=== PATIENT | female | born 1950 | race Caucasian/White ===

== ENCOUNTER → 2016-10-07 | Outpatient (CLI) | payer MEDICARE ==
[~2016-10-07] MED LIST: ACET-1138 PO; ASCO500T16 PO; ASPI81TA28 PO; CARB25TA12 PO; CARB25TA16 PO; CARB50TA3 PO; CEPH500C PO; CHOL1000 PO; CLON1TAB3 PO; CLTP PO; GARL400T4 PO; MELO15TA10 PO; OMEG10007 PO; OXYSR10 PO; RXC5 PO; SERT-234 PO; SUMA100T16 PO; TURM1CAP2 PO
--- NOTE | 2016-10-07 14:06 | DIAGNOSTIC IMAGING REPORT ---
LOWER EXTREMITY WITHOUT HISTORY: 66 years-old Female presents with chronic right foot pain. Degenerative changes are noted within the second through fourth tarsometatarsal joints. COMPARISON: None available TECHNIQUE: Multiple axial CT images of the right foot were obtained without IV contrast. Coronal and sagittal reformatted images were obtained from the axial data set and were submitted for review. A dose lowering technique was used consistent with the principals of GRACIELA. FINDINGS: Talar dome is smooth without osteochondral defect. No acute fracture or dislocation is identified. The bones are mildly demineralized. Os trigonum is noted. Multifocal central, marginal and periarticular erosions are noted throughout the mid foot involving the second, third, fourth and fifth tarsal metatarsal joints with associated bony destruction and articular collapse with associated fragmentation. Subtle changes are seen within the first tarsometatarsal joint. Mild degree of marginal and periarticular erosions are present within the first tarsal metatarsal joint and navicular cuneiform articulation. There are a few central erosions and subcortical cystic changes present within the distal cuboid. The talus and calcaneus demonstrate no focal erosive changes. There is prominent spurring of the plantar and Achilles insertion sites about the calcaneus. There is mild thickening of the distal Achilles tendon suggesting tendinosis. There is moderate soft tissue swelling about the dorsal midfoot with large talonavicular joint effusion, greatest seen laterally. Edema and fluid is also noted about the midfoot and area of previously described erosions. There is thickening of the tibialis anterior tendon suggesting tendinosis. IMPRESSION: 1. No acute fracture identified. 2. Multifocal severe central, marginal and periarticular erosions with articular destruction and fragmentation with surrounding soft tissue swelling involves the midfoot, notably within the second through fifth tarsal metatarsal joints and navicular cuneiform articulations. Less extensive changes are seen within the cuboid, first tarsometatarsal and metatarsophalangeal joints. Differential considerations would include erosive or infectious arthropathy. 2. Large talonavicular joint effusion with moderate soft tissue swelling about the dorsal midfoot. 3. Suspected tibialis anterior tendinosis. The above report was generated using voice recognition software. It may contain grammatical, syntax or spelling errors. Electronically signed by: Marcelo Crooks M.D. 10/07/2016 2:05 PM Dictated Date/Time: 10/07/2016 1:46 PM
== END | disposition home or self-care (01) ==
LOC: C.CTS 13:24
PROVIDERS: ATTEND Orthopaedic Surgery Sports Medicine
DX: M79.671 Pain in right foot (principal); M25.474 Effusion, right foot

== ENCOUNTER → 2016-10-14 | Outpatient (CLI) | payer MEDICARE | END | disposition home or self-care (01) | LOC: C.CPL 17:07 | PROVIDERS: ATTEND Orthopaedic Surgery Sports Medicine | DX: Z01.810 Encounter for preprocedural cardiovascular examination (principal) ==

== ENCOUNTER 2016-11-18 20:03 | Emergency (ER) | payer MEDICARE ==
[~2016-11-18] VITALS: Ht 144.8 cm; Wt 53.5 kg
[~2016-11-18 20:03] MED LIST changes: -ASPI81TA28 PO; -CEPH500C PO; -MELO15TA10 PO
[2016-11-18 20:09] VITALS: Ht 144.8 cm; Wt 53.5 kg
--- NOTE | 2016-11-18 21:15 | EMERGENCY ROOM VISIT NOTE ---
ED Visit Note First contact with patient: 20:35 HPI: Feverishness/chills in setting of recent bone graft for severe arthritis in right foot. PE: AFVSS, NAD NC/AT RRR, no murmurs CTAB Abd soft NT/ND Ext: Right foot with multiple sutured incision sites c/d/i. 2+ edema and localized jaundice in setting of resolving post-op hematoma. Neuro: grossly intact Plan: Infectious w/u. If reassuring can d/c with close f/u. Otherwise admit for IV ABX. I reviewed the patient's past medical history, medications, and visit nursing notes. I discussed the case with the physician behavioral assistant, examined the patient, and agree with the findings and plan as documented in the physician assistants note.
[2016-11-18] MEDS ORDERED: MELO15TA10 PO (21:53)
[2016-11-18] MEDS ORDERED: ASPI81TA28 PO (21:53)
[2016-11-18 21:59] LABS: BUN/CREATININE RATIO 23.7 (10-20); C-REACTIVE PROTEIN 0.98 mg/dl (0-0.29); CALCIUM 9.7 mg/dl (8.5-10.1); CREATININE 0.65 mg/dl (0.60-1.20); POTASSIUM 4.1 mmol/L (3.5-5.1)
--- NOTE | 2016-11-18 22:10 | DIAGNOSTIC IMAGING REPORT ---
R FOOT MIN 3 VIEWS ROUTINE CLINICAL HISTORY: Right foot pain. Postoperative fever. COMPARISON: CT scan dated 10/07/2016 DISCUSSION: There are extensive postsurgical changes present within the midfoot. Multiple metallic plates screws and giovanna are visualized. There are no acute fractures. There is overlying soft tissue edema. There is a nonspecific lucency adjacent to the tip of the second most distal screw at the level of the third metatarsal. IMPRESSION: 1. No acute fractures 2. Extensive postsurgical changes within the midfoot. 3. Soft tissue swelling Electronically signed by: Alejandro Montesinos M.D. 11/18/2016 10:09 PM Dictated Date/Time: 11/18/2016 10:07 PM
[2016-11-18 22:29] LABS: HEMATOCRIT 34.1 % (37-47); MEAN CELL VOLUME 96.6 fL (80-100); MEAN CORPUSCULAR HEMOGLOBIN 32.6 pg (25-34); MEAN CORPUSCULAR HGB CONC 33.7 g/dl (32-36); PLATELET COUNT 369 K/uL (130-400); RED BLOOD COUNT 3.53 M/uL (4.2-5.4); WHITE BLOOD COUNT 8.58 K/uL (4.8-10.8)
[2016-11-18 22:39] LABS: BASO % 0.3 %; BASO ABS # 0.03 K/uL (0-0.2); COMPLETE YES; EOS % 1.7 %; HYPERSEGMENTED POLYS 1+; IG% 0.3 %; LYMPH % 23.9 %; LYMPH ABS # 2.05 K/uL (1.2-3.4); MONO % 10.3 %; NEUT % 63.5 %
[2016-11-18] MEDS ORDERED: CEPHALEXIN 500MG HOME PACK 1 EA BTL PO ONE (22:45)
[2016-11-18] MEDS ORDERED: CEPH500C PO (22:47)
--- NOTE | 2016-11-18 22:52 | EMERGENCY ROOM VISIT NOTE ---
History First contact with patient: 20:35 Chief Complaint: INFECTION Stated Complaint: SURG ON THE 2ND PAIN FEVER Nursing Triage Summary: Patient presents to triage via wheelchair. Patient's present. Patient states "I had surgery on Thursday on my right foot. I developed a blood blister the next day, next to the surgical site. I bent over the following day and it broke open, draining pus and blood. I called Dr. Nunn's office and they told me to keep it covered so that it didn't get infected. I started getting really sharp pains in my right foot. I am really nauseated and I have more pain now than I had when I was discharged. When the pain gets really bad, I start feeling very hot." History of Present Illness The patient is a 66 year old female who presents to the Emergency Room with complaints of right foot pain and fever after undergoing surgery [address] Nunn. The patient reports that she has severe arthritis in the midfoot. The reports that she had a bone graft and other hardware placed. When the patient got home last evening, the reported that he noticed a blood blister under the edge of the dressing, on the top of the foot. The patient reports that it popped last night and looked yellow. The patient felt feverish today, but did not check her temperature. She denies any significant pain. She denies history of antibiotic resistant infections. She currently denies any pain extending into the right calf, knee, hip or back. She denies any chest pain or shortness of breath. She does complain of heel pain. She denies any significant discomfort on my exam. Review of Systems HEENT: Denies dizziness, visual problems, hearing loss, tinnitus. Denies difficulty swallowing or oral lesions. PULMONARY: Denies cough, shortness of breath, sputum production or hemoptysis. CARDIOVASCULAR: Denies chest pain, palpitations, dyspnea on exertion, orthopnea or peripheral edema. GASTROINTESTINAL: Denies diarrhea, constipation, nausea, vomiting, or abdominal pain. GENITOURINARY: Denies dysuria, frequency, urgency or nocturia. NEUROLOGIC: Denies history of epilepsy, CVA, TIA or chronic headaches. MUSCULOSKELETAL: Denies history of joint tenderness/swelling. SKIN: Denies rashes or lesions. PSYCHIATRIC: Denies history of depression or mental illness. ENDOCRINE: Denies history of diabetes or thyroid disorders. Past Medical/Surgical History Medical Problems: (1) Anxiety Disorder, Unspecified (2) DJD of right shoulder (3) Knee Joint Replacement Status (4) Major Depressive Disorder, Single Episode, Unspecified (5) Migraine Unspecified W/O Intractable Migraine (6) Osteoarthritis of foot, right (7) Parkinson's Disease (8) Rheumatoid Arthritis, Unspecified Surgical Problems: (1) Status post right foot surgery Family History Unremarkable Social History Smoking Status: Never Smoker Alcohol Use: none Marital Status: Occupation Status: retired Current/Historical Medications Scheduled Aspirin (Aspirin Ec), 81 MG PO DAILY Carbidopa/Levodopa (Sinemet Cr 50MG/200MG), 1 TAB PO HS Carbidopa/Levodopa (Sinemet 25MG/100MG), 2.5 TAB PO 5xday Carbidopa/Levodopa (Sinemet Cr 25MG/100MG), 1 TAB PO QAM Cephalexin Monohydrate (Keflex), 500 MG PO QID Clonazepam (Klonopin), 0.5 MG PO HS Meloxicam (Mobic), 15 MG PO DAILY Sertraline (Zoloft), 100 MG PO HS Sumatriptan Succinate (Imitrex), 100 MG PO PRN Physical Exam Vital Signs Date Time Temp Pulse Resp B/P (MAP) Pulse Ox O2 Delivery O2 Flow Rate FiO2 11/18/16 22:32 68 20 114/60 97 Room Air 11/18/16 20:09 36.7 82 20 125/79 98 Room Air Physical Exam CONSTITUTIONAL: Healthy and well nourished. Alert and oriented X 3 with positive affect. Patient does not appear acutely ill or toxic. HEENT: Normocephalic, atraumatic. Pupils equal, round and reactive. NECK: Full active range of motion without discomfort. RESPIRATORY: Clear to auscultation bilaterally with no wheezing, crackles, rhonchi or stridor. CARDIOVASCULAR: Regular rate and rhythm with no murmurs, rubs or gallops. GASTROINTESTINAL: Bowel sounds present in all quadrants. Soft and nontender to palpation. MUSCULOSKELETAL: The patient's plaster stirrup splint and soft dressings were removed. Examination shows for surgical incisions that are healing well without any peripheral erythema. There is no purulent or serosanguineous drainage from the wounds. Examination of the dorsal distal foot shows a 2.5 cm ruptured blister. Again she has no obvious peripheral erythema, induration or purulent drainage. She has no tenderness to palpation through the plantar aspect of the foot. Capillary refill is less than 2 seconds. INTEGUMENTARY: No rash or other significant dermatologic conditions noted. NEUROLOGIC: Right foot and toes are sensory intact. Medical Decision & Procedures ER Provider Diagnostic Interpretation: My interpretation of right foot x-rays as extensive surgical changes without any evidence for fracture or hardware displacement. Radiologist report is as follows: R FOOT MIN 3 VIEWS ROUTINE CLINICAL HISTORY: Right foot pain. Postoperative fever. COMPARISON: CT scan dated 10/07/2016 DISCUSSION: There are extensive postsurgical changes present within the midfoot. Multiple metallic plates screws and giovanna are visualized. There are no acute fractures. There is overlying soft tissue edema. There is a nonspecific lucency adjacent to the tip of the second most distal screw at the level of the third metatarsal. IMPRESSION: 1. No acute fractures 2. Extensive postsurgical changes within the midfoot. 3. Soft tissue swelling Laboratory Results 11/18/16 21:15 Red Blood Count 3.53, Mean Corpuscular Volume 96.6, Mean Corpuscular Hemoglobin 32.6, Mean Corpuscular Hemoglobin Concent 33.7, Mean Platelet Volume 9.0, Neutrophils (%) (Auto) 63.5, Lymphocytes (%) (Auto) 23.9, Monocytes (%) (Auto) 10.3, Eosinophils (%) (Auto) 1.7, Basophils (%) (Auto) 0.3, Neutrophils # (Auto ) 5.44, Lymphocytes # (Auto) 2.05, Monocytes # (Auto) 0.88, Eosinophils # (Auto ) 0.15, Basophils # (Auto) 0.03 11/18/16 21:15 Test 11/18/16 21:15 11/18/16 21:27 White Blood Count 8.58 K/uL (4.8-10.8) Red Blood Count 3.53 M/uL (4.2-5.4) Hemoglobin 11.5 g/dL (12.0-16.0) Hematocrit 34.1 % (37-47) Mean Corpuscular Volume 96.6 fL (80-100) Mean Corpuscular Hemoglobin 32.6 pg (25-34) Mean Corpuscular Hemoglobin Concent 33.7 g/dl (32-36) Platelet Count 369 K/uL (130-400) Mean Platelet Volume 9.0 fL (7.4-10.4) Neutrophils (%) (Auto) 63.5 % Lymphocytes (%) (Auto) 23.9 % Monocytes (%) (Auto) 10.3 % Eosinophils (%) (Auto) 1.7 % Basophils (%) (Auto) 0.3 % Neutrophils # (Auto) 5.44 K/uL (1.4-6.5) Lymphocytes # (Auto) 2.05 K/uL (1.2-3.4) Monocytes # (Auto) 0.88 K/uL (0.11-0.59) Eosinophils # (Auto) 0.15 K/uL (0-0.5) Basophils # (Auto) 0.03 K/uL (0-0.2) RDW Standard Deviation 46.1 fL (36.4-46.3) RDW Coefficient of Variation 13.3 % (11.5-14.5) Immature Granulocyte % (Auto) 0.3 % Immature Granulocyte # (Auto) 0.03 K/uL (0.00-0.02) Hypersegmented Polys 1+ Erythrocyte Sedimentation Rate 9 mm/hr (0-21) Anion Gap 6.0 mmol/L (3-11) Est Creatinine Clear Calc Drug Dose 59.9 ml/min Estimated GFR () 107.2 Estimated GFR (Non- 92.5 BUN/Creatinine Ratio 23.7 (10-20) Calcium Level 9.7 mg/dl (8.5-10.1) Total Creatine Kinase 53 U/L (26-192) C-Reactive Protein 0.98 mg/dl (0-0.29) Bedside Lactic Acid Venous 1.51 mmol/L (0.90-1.70) The above labs were reviewed. Blood cultures 2 were collected. The patient has no leukocytosis. Electrolytes and bedside lactate were normal. Sedimentation rate is normal with an elevated CRP. ED Course Patient history and physical exam were performed. Nurse's notes were reviewed. Vital signs were reviewed and were normal. The patient is afebrile and not tachycardic. She is also normotensive. She does not appear in any acute distress. The patient's splint and dressing were removed to show no obvious evidence for infection; however, because the patient has felt fevers, I felt that a septic workup was warranted. IV access was established, and labs were drawn, including blood cultures 2. [id number] lactate was normal. Remaining labs were reviewed, showing no leukocytosis. X-rays of the right foot showed extensive postsurgical changes without evidence for fracture or other hardware displacement. The patient was also seen and examined by Dr. Saab, ED attending physician, who agrees with workup and plan of care. The patient was provided a home pack and prescription for Keflex for prophylactic infection coverage. A well-padded posterior Ortho-Glass splint was applied, and the patient was instructed to call Dr. Nunn's office tomorrow morning for urgent follow-up appointment. She was encouraged to keep the foot elevated for swelling. Ibuprofen and Tylenol as needed for pain. The patient and were happy with plan of care, and the patient denied any significant pain at the conclusion of my exam. Medical Decision Although I do not suspect acute infection at this point, I am concerned that the patient did have a subjective fever at home. She is currently afebrile in the emergency department with no worrisome leukocytosis. X-ray studies were otherwise normal. At this point, I do not feel that an urgent orthopedic reconsultation is needed. Medication Reconcilliation Current Medication List: was personally reviewed by me Blood Pressure Screening Patient's blood pressure: Normal blood pressure Impression Primary Impression: Postoperative wound of right foot Additional Impression: Status post right foot surgery Departure Information Prescriptions Cephalexin Monohydrate (Keflex) 500 Mg Cap 500 MG PO QID for 7 Days, #28 CAP Prov: Av Cardenas PA 11/18/16 Referrals Mary Galindo M.D. (PCP) Patient Instructions [facility] Problem Qualifiers
[2016-11-18 22:54] VITALS: TEMP 37.2
[2016-11-19 00:13] VITALS: BP 122/76; PULSE 69; O2SAT 95
== END 2016-11-19 00:16 | disposition home or self-care (01) ==
LOC: C.EDB 20:05 → C.EDC 11-19 00:16
DX: T81.89XA Other complications of procedures, not elsewhere classified, initial encounter (principal); Y83.8 Other surgical procedures as the cause of abnormal reaction of the patient, or of later complication, without mention of misadventure at the time of the procedure; M19.011 Primary osteoarthritis, right shoulder; Z96.659 Presence of unspecified artificial knee joint; G20 Parkinson's disease; F32.9 Major depressive disorder, single episode, unspecified; F41.9 Anxiety disorder, unspecified; Z79.82 Long term (current) use of aspirin; Z79.899 Other long term (current) drug therapy

== ENCOUNTER 2018-05-19 17:59 | Inpatient (IN) ==
--- NOTE | 2018-05-19 18:57 | Emergency Department Note ---
Entered by Andrey Sofia acting as a scribe for History of Present Illness General Chief complaint: Knee Injury/Pain Stated complaint: REFERRED FOR L KNEE PAIN/SWELLING Time Seen by Provider: 05/19/18 18:18 Source: patient Limitations: no limitations History of Present Illness Onset (ago): day(s) 3 Location: left (leg) Pain Consistency: + constant Maximum Pain Intensity: 8 Quality: + constant Exacerbated By: + movement Associated symptoms: + denies other symptoms (abdominal pain, falls, bowel problems, urinary problems, ); no chest pain, no fever/chills and no shortness of breath The patient is a 67 year old female who presents to the Emergency Room with complaints of constant left knee pain starting 3 days ago. The patient states she had knee surgery in October, done by Dr. Knox. The patient states she got the surgery because she broke her femur from a fall. The patient states she went to rehab, and was not fully back to normal, as she is still using a walker. The patient states she cannot put weight on her leg and the pain is worse with movement. She notes she had two blood clots in her legs after the surgery. The patient states she had a follow-up appointment with her PCP, Dr. Mary Galindo, this morning and her PCP told her to come to the ED. The patient denies any falls, injuring her leg, chest pain, SOB, abdominal pain, back pain, fevers, bowel problems, and urinary problems. The patient notes she does not have any pain besides her leg. She notes she has Parkinsons. She states she had 4 back operations, shoulder replacement, and a foot replacement. The patient notes she takes Eliquis. Home Medications Home Medications Medication Instructions Recorded Confirmed Type cholecalciferol (vitamin D3) 2,000 unit PO QAM #60 tab 10/22/17 05/19/18 Rx [Vitamin D3] amantadine HCl 100 mg PO TID 05/19/18 05/19/18 History apixaban [Eliquis] 5 mg PO BID 05/19/18 05/19/18 History ascorbic acid (vitamin C) [Vitamin 500 mg PO DAILY 05/19/18 05/19/18 History C] aspirin [Aspir-81] 81 mg PO DAILY 05/19/18 05/19/18 History calcium carbonate [Calcium 600] 600 mg PO DAILY 05/19/18 05/19/18 History carbidopa-levodopa 1 tab PO DAILY 05/19/18 05/19/18 History carbidopa-levodopa 1 tab PO DAILY 05/19/18 05/19/18 History carbidopa-levodopa 2.5 tab PO DIRECTED 05/19/18 05/19/18 History clonazepam 0.25 mg PO TID 05/19/18 05/19/18 History doxepin 10 mg PO HS 05/19/18 05/19/18 History garlic 1,000 mg PO DAILY 05/19/18 05/19/18 History multivitamin 1 tab PO DAILY 05/19/18 05/19/18 History wuvow-0t-grz-epa-fish oil [Chandler-3 1 cap PO DAILY 05/19/18 05/19/18 History Fish Oil] oxycodone-acetaminophen [Percocet] 1 tab PO Q6H PRN 05/19/18 05/19/18 History sertraline 50 mg PO BID 05/19/18 05/19/18 History sertraline 100 mg PO DAILY 05/19/18 05/19/18 History sumatriptan succinate 100 mg PO DIRECTED PRN 05/19/18 05/19/18 History Allergies Allergy/AdvReac Type Severity Reaction Status Date / Time No Known Allergies Allergy Unknown Verified 05/19/18 23:00 Past Med/Surg History Medical History Femur fracture, left (Acute) Ankle fracture, left Anxiety Femur fracture, left Migraine Parkinson's disease (tremor, stiffness, slow motion, unstable posture) Surgical History H/O shoulder surgery Right Knee joint replacement status Bilateral Previous back surgery S/P hysterectomy Social History Preferred Language: Japanese Communication Ability: Effective 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 and A total of 10 systems reviewed and were otherwise negative Physical Exam Vital Signs Vital Signs - 24 hr 05/19/18 18:13 05/19/18 20:46 05/19/18 22:30 Temperature 36.6 C Temperature Source Oral Sepsis Recent Fever Within 48 Hours No Sepsis New/Unexplained Change in Mental Status No Sepsis Action Taken by Nursing No Action Required Pulse Rate 78 Pulse Rate [Right Finger] 72 73 Respiratory Rate 18 17 16 Blood Pressure 119/74 Blood Pressure [Left Arm] Blood Pressure [Right Arm] 124/82 124/77 Blood Pressure Mean 89 Blood Pressure Mean [Left Arm] Blood Pressure Mean [Right Arm] 96 92 Blood Pressure Position Sitting Blood Pressure Position [Left Arm] Blood Pressure Position [Right Arm] Pulse Oximetry 100 96 96 Oxygen Delivery Method Room Air Room Air Room Air 05/20/18 00:21 05/20/18 00:48 05/20/18 00:50 Temperature 36.7 C 36.7 C Temperature Source Oral Oral Sepsis Recent Fever Within 48 Hours Sepsis New/Unexplained Change in Mental Status Sepsis Action Taken by Nursing Pulse Rate 68 Pulse Rate [Right Finger] 74 74 Respiratory Rate 18 15 15 Blood Pressure 127/78 Blood Pressure [Left Arm] 127/75 Blood Pressure [Right Arm] 127/75 Blood Pressure Mean Blood Pressure Mean [Left Arm] 92 Blood Pressure Mean [Right Arm] 92 Blood Pressure Position Blood Pressure Position [Left Arm] Lying Blood Pressure Position [Right Arm] Lying Pulse Oximetry 97 96 96 Oxygen Delivery Method Room Air Room Air Room Air General: Non-ill appearing older female in no acute distress. HEENT: Normal cephalic atraumatic. Pupils are equal round and reactive to li ght. Extraocular movements are intact. Oropharynx is pink with moist mucous membranes. No swelling of the mouth lips or tongue. Neck: Supple with a midline trachea. No meningeal signs or stiffness, no JVD or bruits. No Stridor. Chest: Clear to auscultation bilaterally. No wheezes or rhonchi. No increased work of breathing. Heart: regular rate and rhythm. Abdomen: Soft nontender, nondistended without rebound guarding or rigidity. Extremities: No cyanosis clubbing or edema. Moderate swelling in distal femur anteriorly and laterally. No redness or warmth. Full ROM without warmth or redness. Normal sensation in left lower extremity. Spine/Back. Non tender to palpation. No CVA tenderness Skin: Good turgor without rashes. Neurologic exam: Cranial nerves two through 12 are intact. Motor and sensation are intact and symmetrical throughout. Course 1819: The patient was evaluated in room A11B, and a complete history and physical examination were performed. 1920: The patient is currently getting an ultrasound. 1922: I spoke with Dr. Donnelly regarding the patient. He wants to get a CT scan of the femur. 1929: I reevaluated the patient. I talked to the about getting a CT scan. 2048: I reevaluated the patient. She is feeling much better. 2129: I spoke with Dr. Donnelly regarding the patient. He will evaluate the patient for further management. Administered Medications Carbidopa/Levodopa (Sinemet Cr 50/200mg) 1 tab PO [facility] Stop: 06/19/18 01:29 Last Admin: 05/20/18 01:59 Dose: 1 tab Documented by: [id number] Clonazepam (Klonopin) 0.5 mg PO [facility] Stop: 06/19/18 01:29 Last Admin: 05/20/18 01:59 Dose: 0.5 mg Documented by: [id number] Dextrose/Sodium Chloride (D5w And 1/2nss) 1,000 mls @ 80 mls/hr IV .[id number] Stop: 06/19/18 01:29 Last Admin: 05/20/18 01:57 Dose: 80 mls/hr Documented by: [id number] Senna/Docusate Sodium (Senokot S) 2 tab PO [facility] Stop: 06/19/18 01:29 Last Admin: 05/20/18 02:01 Dose: 2 tab Documented by: [id number] Sertraline HCl (Zoloft) 100 mg PO [facility] Stop: 06/19/18 01:29 Last Admin: 05/20/18 01:59 Dose: 100 mg Documented by: [id number] Medical Decision Making Differential Diagnosis Differential Diagnosis: DVT, hematoma, infection, post-operation complication, fracture, and electrolyte or metabolic abnormality. Medical Records Attestation: I reviewed the patient's medical records. Home Medications Current Medication List: was personally reviewed by me Laboratory Data Attestation: I reviewed the patient's lab results. Result diagrams: 05/19/18 18:37 05/19/18 18:37 Lab Results 05/19/18 05/19/18 05/19/18 Range/Units 18:37 18:37 18:37 WBC 10.33 (4.8-10.8) K/uL RBC 3.67 L (4.2-5.4) M/uL Hgb 12.0 (12.0-16.0) g/dL Hct 35.8 L (37-47) % MCV 97.5 (80-100) fL MCH 32.7 (25-34) pg MCHC 33.5 (32-36) g/dL RDW Std Deviation 48.1 H (36.4-46.3) fL RDW Coeff of Valeria 13.9 (11.5-14.5) % Plt Count 307 (130-400) K/uL MPV 9.3 (7.4-10.4) fL Immature Gran % (Auto) 0.3 % Neut % (Auto) 66.9 % Lymph % (Auto) 19.5 % Claiborne % (Auto) 12.4 % Eos % (Auto) 0.8 % Baso % (Auto) 0.1 % Immature Gran # (Auto) 0.03 H (0.00-0.02) K/uL Neut # (Auto) 6.92 H (1.4-6.5) K/uL Lymph # (Auto) 2.01 (1.2-3.4) K/uL Cla[place]orne # (Auto) 1.28 H (0.11-0.59) K/uL Eos # (Auto) 0.08 (0-0.5) K/uL Baso # (Auto) 0.01 (0-0.2) K/uL ESR (0-21) mm/hr PT 10.8 (9.0-12.0) Seconds INR 1.1 (0.9-1.1) APTT 25.9 (21.0-31.0) Seconds PTT Ratio 1.0 Sodium 140 (136-145) mmol/L Potassium 3.6 (3.5-5.1) mmol/L Chloride 107 (98-107) mmol/L Carbon Dioxide 25 (21-32) mmol/L Anion Gap 8.0 (3-11) BUN 16 (7-18) mg/dl Creatinine 0.61 (0.6-1.2) mg/dl Est Cr Clr Drug Dosing Not Reportable Est GFR ( Amer) 108.7 Est GFR (Non-Af Amer) 93.8 BUN/Creatinine Ratio 26.6 H (10-20) Glucose 124 H (70-99) mg/dl Calcium 9.4 (8.5-10.1) mg/dl Total Bilirubin 0.4 (0.2-1) mg/dl AST 8 L (15-37) U/L ALT 8 L (12-78) U/L Alkaline Phosphatase 223 H (45-117) U/L C-Reactive Protein 2.70 H (0-0.29) mg/dl Total Protein 7.5 (6.4-8.2) gm/dl Albumin 3.7 (3.4-5.0) gm/dl Globulin 3.8 (2.5-4.0) gm/dl Albumin/Globulin Ratio 1.0 (0.9-2) 05/19/18 Range/Units 18:50 WBC (4.8-10.8) K/uL RBC (4.2-5.4) M/uL Hgb (12.0-16.0) g/dL Hct (37-47) % MCV (80-100) fL MCH (25-34) pg MCHC (32-36) g/dL RDW Std Deviation (36.4-46.3) fL RDW Coeff of Valeria (11.5-14.5) % Plt Count (130-400) K/uL MPV (7.4-10.4) fL Immature Gran % (Auto) % Neut % (Auto) % Lymph % (Auto) % Claiborne % (Auto) % Eos % (Auto) % Baso % (Auto) % Immature Gran # (Auto) (0.00-0.02) K/uL Neut # (Auto) (1.4-6.5) K/uL Lymph # (Auto) (1.2-3.4) K/uL Claiborne # (Auto) (0.11-0.59) K/uL Eos # (Auto) (0-0.5) K/uL Baso # (Auto) (0-0.2) K/uL ESR 8 (0-21) mm/hr PT (9.0-12.0) Seconds INR (0.9-1.1) APTT (21.0-31.0) Seconds PTT Ratio Sodium (136-145) mmol/L Potassium (3.5-5.1) mmol/L Chloride (98-107) mmol/L Carbon Dioxide (21-32) mmol/L Anion Gap (3-11) BUN (7-18) mg/dl Creatinine (0.6-1.2) mg/dl Est Cr Clr Drug Dosing Est GFR ( Amer) Est GFR (Non-Af Amer) BUN/Creatinine Ratio (10-20) Glucose (70-99) mg/dl Calcium (8.5-10.1) mg/dl Total Bilirubin (0.2-1) mg/dl AST (15-37) U/L ALT (12-78) U/L Alkaline Phosphatase (45-117) U/L C-Reactive Protein (0-0.29) mg/dl Total Protein (6.4-8.2) gm/dl Albumin (3.4-5.0) gm/dl Globulin (2.5-4.0) gm/dl Albumin/Globulin Ratio (0.9-2) Imaging Data Radiologist's Impression: Radiology results as stated below per my review and the radiologist's interpretation: US venous doppler LE LT CLINICAL HISTORY: Left lower extremity pain and swelling HISTORY OF PRIOR DVT COMPARISON STUDY: October 2017 FINDINGS: Real-time and color flow Doppler imaging were performed. Flow was seen within the femoral, popliteal and calf veins with no intraluminal thrombus demonstrated. The saphenous vein is patent. There is a small popliteal cyst. IMPRESSION: No evidence of left lower extremity DVT. Electronically signed by: Alejandro Montesinos M.D. 05/19/2018 7:43 PM XR femur LT 2V routine (5 views) CLINICAL HISTORY: Lower leg swelling COMPARISON: October 2017 DISCUSSION: There are postsurgical changes of a total left knee arthroplasty. There is a lateral mid to distal femoral metallic plate with multiple screws. The plate is fractured. There is nonaggressive periosteal/cortical thickening involving the medial aspect of the mid to distal femur. IMPRESSION: 1. Internally fixated distal femoral fracture. 2. Hardware failure with fracture of the cortical plate. 3. Prominent cortical thickening/periostitis at the prior fracture site, consistent with fracture healing, and possibly accentuated due to hardware failure and abnormal motion Electronically signed by: Alejandro Monteisnos M.D. 05/19/2018 7:[address] femur LT wo con CT DOSE: 1018.70 mGy.cm CLINICAL HISTORY: Left femur pain. Left lower extremity swelling. TECHNIQUE: Helical images were acquired in the transverse plane. Sagittal and coronal reformatted images were acquired. A dose lowering technique was utilized adhering to the principles of ALARA. COMPARISON STUDY: Conventional x-ray dated 05/19/2018 FINDINGS: There is moderate artifact secondary to a total knee arthroplasty and distal femoral cortical plate. There is an internally fixated fracture of the distal femur. There is abundant periostitis and cortical thickening. There is evidence for fracture nonunion. There is a fracture of the cortical plate. IMPRESSION: 1. Total knee arthroplasty 2. Internally fixated fracture of the mid to distal femur with a lateral cortical plate and multiple screws. 3. There is evidence for hardware failure with fracture of the plate. 4. 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 Electronically signed by: Alejandro Montesinos M.D. 05/19/2018 8:45 PM Blood Pressure Blood Pressure Findings: Normal blood pressure Blood Pressure Disposition: further management by hospitalist PATRICIA Abdul This patient comes in as described above. She was placed in room A11. She has a history of left femur surgery in this previous November. She is almost fully recovered from that but she does walk with a walker but also has Parkinson's. O tatiana the last several days, she has had swelling in the distal femur and laterally. There is no redness or warmth it is seems above the knee joint as well. She has no neurologic or neurovascular deficit, she is on a blood thinner also has a history of blood clots. In light of this, I did order an ultrasound x-ray and multiple blood tests including inflammatory markers. She has no evidence of DVT on her ultrasound. Her x-ray does show a fracture of the hardware distally. I did discuss this with Dr. Donnelly recommends a CT. I got the CT and this confirms that there is also some nonunion of the fracture. The patient does not feel she can go home she cannot walk she has swelling and has P arkinson's so she has a fall risk to begin with I do think she needs to be admitted/observed for further treatment and evaluation. Dr. Vincent will be admitting her. Impression & Plan Fracture of femoral component of total hip prosthesis Discharge Plan Visit Data *Final* Discharge Date/Time: 05/20/18 00:21 Chief Complaint: Knee Injury/Pain Stated Complaint: REFERRED FOR L KNEE PAIN/SWELLING ED Provider: Alfredo Yeager Discharge Problem: Fracture of femoral component of total hip prosthesis Patient Disposition: Admitted As Inpatient Discharge Instructions Interventions: ED Discharge Assessment Last Done: 05/20/18 00:21 Discharge Problem: Fracture of femoral component of total hip prosthesis Qualifiers: Encounter type: initial encounter Qualified Code(s): T84.018A - Broken internal joint prosthesis, other site, initial encounter The scribe's documentation has been prepared under my direction and personally reviewed by me in its entirety. I confirm that the note above accurately reflects all work, treatment, procedures, and medical decision making performed by me.
[2018-05-19 19:10] LABS: INR 1.1 (0.9-1.1); Partial Thromboplastin Time 25.9 Seconds (21.0-31.0); Prothrombin Time 10.8 Seconds (9.0-12.0)
--- NOTE | 2018-05-19 19:10 | XRay Report ---
XR femur LT 2V routine (5 views) CLINICAL HISTORY: Lower leg swelling COMPARISON: October 2017 DISCUSSION: There are postsurgical changes of a total left knee arthroplasty. There is a lateral mid to distal femoral metallic plate with multiple screws. The plate is fractured. There is nonaggressive periosteal/cortical thickening involving the medial aspect of the mid to distal femur. IMPRESSION: 1. Internally fixated distal femoral fracture. 2. Hardware failure with fracture of the cortical plate. 3. Prominent cortical thickening/periostitis at the prior fracture site, consistent with fracture hea ling, and possibly accentuated due to hardware failure and abnormal motion Electronically signed by: Alejandro Montesinos M.D. 05/19/2018 7:08 PM
[2018-05-19 19:14] LABS: Albumin Level 3.7 gm/dl (3.4-5.0); Aspartate Aminotransferase 8 U/L (15-37); BUN Creatinine Ratio 26.6 (10-20); Blood Urea Nitrogen 16 mg/dl (7-18); Calcium 9.4 mg/dl (8.5-10.1); Carbon Dioxide 25 mmol/L (21-32); Chloride 107 mmol/L (98-107); Est GFR (African American) 108.7; Est GFR (Non-African American) 93.8; Glucose 124 mg/dl (70-99); Potassium 3.6 mmol/L (3.5-5.1); Sodium 140 mmol/L (136-145)
[2018-05-19 19:20] LABS: Alanine Aminotransferase 8 U/L (12-78); Alkaline Phosphatase 223 U/L (45-117); Bilirubin,Total 0.4 mg/dl (0.2-1); Globulin 3.8 gm/dl (2.5-4.0); Total Protein 7.5 gm/dl (6.4-8.2)
--- NOTE | 2018-05-19 19:44 | Ultrasound Report ---
US venous doppler LE LT CLINICAL HISTORY: Left lower extremity pain and swelling HISTORY OF PRIOR DVT COMPARISON STUDY: October 2017 FINDINGS: Real-time and color flow Doppler imaging were performed. Flow was seen within the femoral, popliteal and calf veins with no intraluminal thrombus demonstrated. The saphenous vein is patent. Th ere is a small popliteal cyst. IMPRESSION: No evidence of left lower extremity DVT. Electronically signed by: Alejandro Montesinos M.D. 05/19/2018 7:43 PM
--- NOTE | 2018-05-19 20:46 | CT Scan Report ---
CT femur LT wo con CT DOSE: 1018.70 mGy.cm CLINICAL HISTORY: Left femur pain. Left lower extremity swelling. TECHNIQUE: Helical images were acquired in the transverse plane. Sagittal and coronal reformatted adalberto ges were acquired. A dose lowering technique was utilized adhering to the principles of ALARA. COMPARISON STUDY: Conventional x-ray dated 05/19/2018 FINDINGS: There is moderate artifact secondary to a total knee arthroplasty and distal femoral cortical plate. There is an internally fixated fracture of the distal femur. There is abundant periostitis and cortic al thickening. There is evidence for fracture nonunion. There is a fracture of the cortical plate. IMPRESSION: 1. Total knee arthroplasty 2. Internally fixated fracture of the mid to distal femur with a lateral cortical plate and multiple screws. 3. There is evidence for hardware failure with fracture of the plate. 4. 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 Electronically signed by: Alejandro Montesinos M.D. 05/19/2018 8:45 PM
[2018-05-19 21:02] LABS: Hematocrit (blood only) 35.8 % (37-47); Mean Corpuscular Hgb Conc 33.5 g/dL (32-36); Mean Corpuscular Volume 97.5 fL (80-100); Mean Platelet Volume 9.3 fL (7.4-10.4); Platelet Count 307 K/uL (130-400); RDW Coefficient of Variation 13.9 % (11.5-14.5); RDW Standard Deviation 48.1 fL (36.4-46.3); Red Blood Count 3.67 M/uL (4.2-5.4); White Blood Count 10.33 K/uL (4.8-10.8)
[2018-05-19 22:00] LABS: Basophils # (auto) 0.01 K/uL (0-0.2); Basophils % (auto) 0.1 %; Eosinophils # (auto) 0.08 K/uL (0-0.5); Eosinophils % (auto) 0.8 %; Immature Granulocytes # (auto) 0.03 K/uL (0.00-0.02); Immature Granulocytes % (auto) 0.3 %; Lymphocytes # (auto) 2.01 K/uL (1.2-3.4); Lymphocytes % (auto) 19.5 %; Monocytes # (auto) 1.28 K/uL (0.11-0.59); Monocytes % (auto) 12.4 %; Neutrophils # (auto) 6.92 K/uL (1.4-6.5); Neutrophils % (auto) 66.9 %
[2018-05-20] MEDS ORDERED: DiphenhydrAMINE HCL 50 MG/ML VIAL IV PRN (00:42)
[2018-05-20] MEDS ORDERED: MAGNESIUM HYDROXIDE SUSP 30 ML UDC PO PRN (00:42)
[2018-05-20] MEDS ORDERED: SERTRALINE HCL 100 MG TABLET PO SCH (01:30)
[2018-05-20] MEDS ORDERED: clonazePAM 0.5 MG TAB PO SCH ×3 (01:30→21:00)
[2018-05-20] MEDS: D5W AND 1/2NSS 1,000 ML IV SCH ×2 (01:57→13:16)
[2018-05-20] MEDS: CARBIDOPA/LEVODOPA 50/200MG EXT REL TAB PO SCH ×2 (01:59→21:15)
[2018-05-20] MEDS: DOCUSATE SODIUM/SENNA 50/8.6MG TAB PO SCH ×2 (02:01→21:15)
--- NOTE | 2018-05-20 02:23 | Consultation ---
Date of Consultation May 20, 2018 Assessment & Plan (1) Femur fracture, left: Patient with fracture of left femur, failure of hardware. To have surgical repair in AM with Dr. Nunn. Patient is low risk for perioperative MACE. She has no known CAD, arrhythmia or lung disease. Able to complete 4 mets of activity without exertional symptoms, although activity is limited by pain recently. -Pain control with Hydrocodone per primary team -Bowel regimen - Senna/Docusate -Check EKG x 1 in AM Present on Admission?: Yes (2) Parkinson's disease (tremor, stiffness, slow motion, unstable posture): Chronic. Well controlled with home medication regimen -Continue Carbidopa/Levodopa at home dosage -Continue Amantadine -Continue to monitor Present on Admission?: Yes (3) Anxiety: Patient reports feeling anxious now -Continue Sertraline 100mg po qHS and 50mg po BID - administered now -Continue Clonazepam 0.25mg po TID - administered now (4) Migraine: Chronic. Patient feels she is developing a migraine now -Sumatriptan PRN Present on Admission?: Yes (5) DVT (deep venous thrombosis): Patient with history of provoked DVT x 2, on Eliquis anticoagulation. Last taken 05/19/18 evening -Hold Eliquis for surgery -Hold ASA Thank you for this consult. We will continue to follow patient post- operatively. History of Present Illness Reason for Consultation: pre-operative assessment, medical management Attending Physician: Antonio Nunn DO History of Present Illness Mrs. Stovall is a pleasant 67yo female with history of Parkinson's Disease, Anxiety and Migraine presenting with left femur fracture. Patient had surgery on her left foot in 2016. She was recovering from that surgery when she fell and sustained a periprosthetic femur fracture in October,. Patient had ORIF performed by Dr. Nunn on 10/11/17. Post- operative course complicated by DVT of the LLE - peroneal and posterior tibial veins as well as post-operative anemia requiring transfusion of 2u PRBCs. Patient was transfered to [facility] for rehabilitation. She completed rehabilitation and returned home. She states she has been doing fairly well. Still requiring a walker for ambulation. She began having pain in the left knee three days ago. Progressive - patient unable to stand or bear weight yesterday. She was evaluated by her PCP who noted swelling of the knee and femur and she was sent to the ER. Patient denies trauma to the extremity. No new activity. No fevers/chills. No additional complaints at this time. Imaging in the ER confirmed presence of nonunion femoral fracture, concern for failure of hardware with fracture at the plate. Patient is presently comfortable. She does admit to feeling anxious and is concerned that she may be developing a migraine. Allergies Allergy/AdvReac Type Severity Reaction Status Date / Time No Known Allergies Allergy Unknown Verified 05/19/18 23:00 Home Medications Home Medications Medication Instructions Recorded Confirmed Type cholecalciferol (vitamin D3) 2,000 unit PO QAM #60 tab 10/22/17 05/19/18 Rx [Vitamin D3] amantadine HCl 100 mg PO TID 05/19/18 05/19/18 History apixaban [Eliquis] 5 mg PO BID 05/19/18 05/19/18 History ascorbic acid (vitamin C) [Vitamin 500 mg PO DAILY 05/19/18 05/19/18 History C] aspirin [Aspir-81] 81 mg PO DAILY 05/19/18 05/19/18 History calcium carbonate [Calcium 600] 600 mg PO DAILY 05/19/18 05/19/18 History carbidopa-levodopa 1 tab PO DAILY 05/19/18 05/19/18 History carbidopa-levodopa 1 tab PO DAILY 05/19/18 05/19/18 History carbidopa-levodopa 2.5 tab PO DIRECTED 05/19/18 05/19/18 History clonazepam 0.25 mg PO TID 05/19/18 05/19/18 History doxepin 10 mg PO HS 05/19/18 05/19/18 History garlic 1,000 mg PO DAILY 05/19/18 05/19/18 History multivitamin 1 tab PO DAILY 05/19/18 05/19/18 History wtlgo-[id number]-ozl-epa-fish oil [[place]-3 1 cap PO DAILY 05/19/18 05/19/18 History Fish Oil] oxycodone-acetaminophen [Percocet] 1 tab PO Q6H PRN 05/19/18 05/19/18 History sertraline 50 mg PO BID 05/19/18 05/19/18 History sertraline 100 mg PO DAILY 05/19/18 05/19/18 History sumatriptan succinate 100 mg PO DIRECTED PRN 05/19/18 05/19/18 History Patient History Medical History Femur fracture, left (Acute) DVT (deep venous thrombosis) Provoked x 2 episodes. On Eliquis anticoagulation Ankle fracture, left Anxiety Femur fracture, left Migraine Parkinson's disease (tremor, stiffness, slow motion, unstable posture) Surgical History History of open reduction and internal fixation (ORIF) procedure Left femur - Oct 2017 H/O shoulder surgery Right Knee joint replacement status Bilateral Previous back surgery S/P hysterectomy Social History Preferred Language: Austrian Communication Ability: Effective Secondary English Teacher Required: No Beliefs That Will Affect Care: None Current Living Situation: Spouse Other Information That Helps Us Care for You: No Feels Safe at Home: Yes Safety Concerns: Feels Safe At This Time Smoking Status: Never smoker Hx Alcohol Use: No Hx Substance Use: No Review of Systems General: patient denies fevers/sweats/malaise/weight loss or weight gain Skin: patient denies rashes/lesions HEENT: patient denies visual changes/hearing changes/sore throat/dysphagia/odynophagia/neck pain Heart: patient denies chest pain/palpitations/syncope/orthopnea Lungs: patient denies cough/wheezing/shortness of breath Abd: patient denies abdominal pain/nausea/vomiting/diarrhea/constipation/melena/hematochezia : patient denies hematuria/dysuria/frequency/urgency Heme: patient denies easy bleeding/bruising Endo: patient denies polyuria/polydipsia + Chills +Headache Physical Exam Vital Signs (Past 24 Hours): Last Vital Signs Temp 36.7 C 05/20/18 00:50 Pulse 74 05/20/18 00:50 Resp 15 05/20/18 00:50 BP 127/75 05/20/18 00:50 Pulse Ox 96 05/20/18 00:50 Physical Exam: General: patient resting comfortably, NAD, non-toxic in appearance, AA&O x 4, anxious in appearance Skin: warm, dry, intact, no rashes or lesions HEENT: NC/AT, PERRL, EOMI, anicteric sclera, conjunctiva without injection, external ear normal to inspection and nontender, nares patent, moist mucus membranes, dentition intact, no oropharyngeal lesions, neck supple, trachea midline, no LAD, no thyromegaly, no JVD Heart: +S1/S2, regular, no m/r/g Lungs: equal air entry bilaterally, no rales/rhonchi/wheezes Abd: +BS, soft, NT/ND, no masses/organomegaly/ascites Ext: warm, 2+ pulses in UE/LE bilaterally, no clubbing/cyanosis or edema, left leg elevated on pillow with ice pack in place Neuro: nonfocal, patient AA&O x 4, speech intact, no facial droop, moving all extremities on command with equal strength 5/5, muscle rigidity noted Results & Data Laboratory Results Lab Results 05/19/18 05/19/18 05/19/18 Range/Units 18:37 18:37 18:37 WBC 10.33 (4.8-10.8) K/uL RBC 3.67 L (4.2-5.4) M/uL Hgb 12.0 (12.0-16.0) g/dL Hct 35.8 L (37-47) % MCV 97.5 (80-100) fL MCH 32.7 (25-34) pg MCHC 33.5 (32-36) g/dL RDW Std Deviation 48.1 H (36.4-46.3) fL RDW Coeff of Valeria 13.9 (11.5-14.5) % Plt Count 307 (130-400) K/uL MPV 9.3 (7.4-10.4) fL Immature Gran % (Auto) 0.3 % Neut % (Auto) 66.9 % Lymph % (Auto) 19.5 % Mcdonough % (Auto) 12.4 % Eos % (Auto) 0.8 % Baso % (Auto) 0.1 % Immature Gran # (Auto) 0.03 H (0.00-0.02) K/uL Neut # (Auto) 6.92 H (1.4-6.5) K/uL Lymph # (Auto) 2.01 (1.2-3.4) K/uL Mcdonough # (Auto) 1.28 H (0.11-0.59) K/uL Eos # (Auto) 0.08 (0-0.5) K/uL Baso # (Auto) 0.01 (0-0.2) K/uL ESR (0-21) mm/hr PT 10.8 (9.0-12.0) Seconds INR 1.1 (0.9-1.1) APTT 25.9 (21.0-31.0) Seconds PTT Ratio 1.0 Sodium 140 (136-145) mmol/L Potassium 3.6 (3.5-5.1) mmol/L Chloride 107 (98-107) mmol/L Carbon Dioxide 25 (21-32) mmol/L Anion Gap 8.0 (3-11) BUN 16 (7-18) mg/dl Creatinine 0.61 (0.6-1.2) mg/dl Est Cr Clr Drug Dosing Not Reportable Est GFR ( Amer) 108.7 Est GFR (Non-Af Amer) 93.8 BUN/Creatinine Ratio 26.6 H (10-20) Glucose 124 H (70-99) mg/dl Calcium 9.4 (8.5-10.1) mg/dl Total Bilirubin 0.4 (0.2-1) mg/dl AST 8 L (15-37) U/L ALT 8 L (12-78) U/L Alkaline Phosphatase 223 H (45-117) U/L C-Reactive Protein 2.70 H (0-0.29) mg/dl Total Protein 7.5 (6.4-8.2) gm/dl Albumin 3.7 (3.4-5.0) gm/dl Globulin 3.8 (2.5-4.0) gm/dl Albumin/Globulin Ratio 1.0 (0.9-2) 05/19/18 Range/Units 18:50 WBC (4.8-10.8) K/uL RBC (4.2-5.4) M/uL Hgb (12.0-16.0) g/dL Hct (37-47) % MCV (80-100) fL MCH (25-34) pg MCHC (32-36) g/dL RDW Std Deviation (36.4-46.3) fL RDW Coeff of Valeria (11.5-14.5) % Plt Count (130-400) K/uL MPV (7.4-10.4) fL Immature Gran % (Auto) % Neut % (Auto) % Lymph % (Auto) % Mcdonough % (Auto) % Eos % (Auto) % Baso % (Auto) % Immature Gran # (Auto) (0.00-0.02) K/uL Neut # (Auto) (1.4-6.5) K/uL Lymph # (Auto) (1.2-3.4) K/uL Mcdonough # (Auto) (0.11-0.59) K/uL Eos # (Auto) (0-0.5) K/uL Baso # (Auto) (0-0.2) K/uL ESR 8 (0-21) mm/hr PT (9.0-12.0) Seconds INR (0.9-1.1) APTT (21.0-31.0) Seconds PTT Ratio Sodium (136-145) mmol/L Potassium (3.5-5.1) mmol/L Chloride (98-107) mmol/L Carbon Dioxide (21-32) mmol/L Anion Gap (3-11) BUN (7-18) mg/dl Creatinine (0.6-1.2) mg/dl Est Cr Clr Drug Dosing Est GFR ( Amer) Est GFR (Non-Af Amer) BUN/Creatinine Ratio (10-20) Glucose (70-99) mg/dl Calcium (8.5-10.1) mg/dl Total Bilirubin (0.2-1) mg/dl AST (15-37) U/L ALT (12-78) U/L Alkaline Phosphatase (45-117) U/L C-Reactive Protein (0-0.29) mg/dl Total Protein (6.4-8.2) gm/dl Albumin (3.4-5.0) gm/dl Globulin (2.5-4.0) gm/dl Albumin/Globulin Ratio (0.9-2) Diagnostic Findings CT femur LT wo con CT DOSE: 1018.70 mGy.cm CLINICAL HISTORY: Left femur pain. Left lower extremity swelling. TECHNIQUE: Helical images were acquired in the transverse plane. Sagittal and coronal reformatted images were acquired. A dose lowering technique was utilized adhering to the principles of ALARA. COMPARISON STUDY: Conventional x-ray dated 05/19/2018 FINDINGS: There is moderate artifact secondary to a total knee arthroplasty and distal femoral cortical plate. There is an internally fixated fracture of the distal femur. There is abundant periostitis and cortical thickening. There is evidence for fracture nonunion. There is a fracture of the cortical plate. IMPRESSION: 1. Total knee arthroplasty 2. Internally fixated fracture of the mid to distal femur with a lateral cortical plate and multiple screws. 3. There is evidence for hardware failure with fracture of the plate. 4. 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 Electronically signed by: Alejandro Montesinos M.D. 05/19/2018 8:45 PM Dictated: 05/19/182040 US venous doppler LE CLINICAL HISTORY: Left lower extremity pain and swelling HISTORY OF PRIOR DVT COMPARISON STUDY: October 2017 FINDINGS: Real-time and color flow Doppler imaging were performed. Flow was seen within the femoral, popliteal and calf veins with no intraluminal thrombus demonstrated. The saphenous vein is patent. There is a small popliteal cyst. IMPRESSION: No evidence of left lower extremity DVT. Electronically signed by: Alejandro Montesinos M.D. 05/19/2018 7:43 PM Dictated: 05/19/181940 Transcribed: 05/19/181940 XR femur LT 2V routine (5 views) CLINICAL HISTORY: Lower leg swelling COMPARISON: October 2017 DISCUSSION: There are postsurgical changes of a total left knee arthroplasty. There is a lateral mid to distal femoral metallic plate with multiple screws. The plate is fractured. There is nonaggressive periosteal/cortical thickening involving the medial aspect of the mid to distal femur. IMPRESSION: 1. Internally fixated distal femoral fracture. 2. Hardware failure with fracture of the cortical plate. 3. Prominent cortical thickening/periostitis at the prior fracture site, consistent with fracture healing, and possibly accentuated due to hardware failure and abnormal motion Electronically signed by: Alejandro Montesinos M.D. 05/19/2018 7:08 PM Dictated: 05/19/181904 Transcribed: 05/19/181904 (1) DVT (deep venous thrombosis) Affected thrombotic vein of extremity: unspecified vein of extremity Chronicity: unspecified DVT location: lower extremity Laterality: left Qualified Code(s): I82.402 - Acute embolism and thrombosis of unspecified deep veins of left lower extremity (2) Migraine Intractability: not intractable Migraine type: other Status migrainosus presence: without status migrainosus Qualified Code(s): G43.809 - Other migraine, not intractable, without status migrainosus (3) Femur fracture, left Encounter type: subsequent encounter Femur location: distal Fracture healing: with routine healing Fracture morphology: other fracture Fracture type: closed Qualified Code(s): S72.492D - Other fracture of lower end of left femur, subsequent encounter for closed fracture with routine healing
[2018-05-20] MEDS ORDERED: AMANTADINE HCL 100 MG CAPSULE PO SCH ×2 (06:00→09:00)
[2018-05-20] MEDS ORDERED: SERTRALINE HCL 50 MG TABLET PO SCH (06:00)
[2018-05-20] MEDS: CARBIDOPA/LEVODOPA 25/100MG TAB PO SCH ×4 (06:08→18:12)
[2018-05-20] MEDS: CARBIDOPA/LEVODOPA 25/100MG EXT REL TAB PO SCH (06:09)
[2018-05-20] MEDS ORDERED: CARBIDOPA/LEVODOPA 25/100MG TAB PO SCH (07:00)
[2018-05-20] MEDS: FERROUS SULFATE 325 MG TAB PO SCH ×2 (07:55→18:11)
[2018-05-20] MEDS: HYDROCODONE/ACETAMOPHEN 5/325MG TAB PO PRN ×3 (07:58→21:17)
[2018-05-20] MEDS: CHOLECALCIFEROL 1,000 UNITS TAB PO SCH (08:04)
[2018-05-20] MEDS ORDERED: CARBIDOPA/LEVODOPA 25/100MG EXT REL TAB PO SCH (09:00)
--- NOTE | 2018-05-20 10:54 | History and Physical Report ---
DATE OF CONSULTATION: 05/20/2018 CHIEF COMPLAINT: Left thigh pain. HISTORY OF PRESENT ILLNESS: The patient is a 67-year-old female who had acute onset of left thigh/knee pain. She had inability to bear weight. She was referred to the [facility] ED for evaluation. X-rays revealed hardware failure of previous distal femoral plate and probable nonunion of the previous fracture. She was admitted by the orthopedic service for further definitive orthopedic care. PAST MEDICAL HISTORY: Parkinson's disease, history of DVT on chronic Eliquis therapy. She denies any significant cardiac or pulmonary disease. She denies history of diabetes. PAST SURGICAL HISTORY: Left total knee by Dr. Knox 2011, ORIF left periprosthetic femur fracture by Dr. Nunn 2017. She had right foot surgery by Dr. Nunn. She had a right shoulder replacement by Dr. Castillo. She has had multiple L-spine surgeries by Dr. Kingston. She had a previous hysterectomy. MEDICATIONS: Include vitamin D3 2000 units daily, amantadine HCL 100 mcg t.i.d., Eliquis 5 mg p.o. b.i.d., vitamin C 500 mg daily, aspirin 81 mg daily, calcium carbonate 600 mg daily, carbidopa/levodopa once daily as directed, clonazepam 0.25 mg p.o. t.i.d., doxepin 10 mg p.o. at bedtime, garlic 1000 mg daily, multivitamin daily, omega-3 fish oil daily, Percocet p.r.n. pain, sertraline 50 mg p.o. b.i.d., sertraline 100 mg daily, sumatriptan succinate 100 mg p.o. p.r.n. ALLERGIES: No known drug allergies. SOCIAL HISTORY: She lives with her in [facility]. She has been using a walker for ambulation. Her primary care physician is Dr. Galindo from [place] as well. PHYSICAL EXAMINATION: GENERAL: Well-nourished, well-developed, thin elderly female who is lying in bed, appears fairly comfortable. HEENT: Normocephalic, atraumatic, extraocular movements intact, oropharynx pink and moist. NECK: Supple without adenopathy. LUNGS: Clear to auscultation bilaterally. HEART: Regular rate and rhythm. ABDOMEN: Soft, nontender, nondistended. EXTREMITIES: The upper extremities are within normal limits. The left lower extremity is resting on a pillow. She does not have a knee immobilizer in place. Her toes are mobile and neurovascularly intact. The patient denies any other areas of pain. X-RAYS: X-rays were reviewed. She has a left total knee in place. There is a fairly long lateral supracondylar plate in place. There has been failure of the plate in the mid to distal third region. There are [address] There is evidence of a probable nonunion in the distal shaft/supracondylar region of the distal femur. 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 PLAN: Above discussed with the patient. She understands this is a difficult problem. I will discuss with Dr. Mejia, Dr. Castillo and formulate a plan. She is currently n.p.o. If her surgery is not going to be today, we will allow her to eat until a definitive surgical plan has been established.
[2018-05-20] MEDS: SERTRALINE HCL 100 MG TABLET PO SCH (15:04)
--- NOTE | 2018-05-20 16:15 | History & Physical Bridge Note ---
Date of Service May 20, 2018 History & Physical Bridge Note Patient seen today. Per patient, surgery is likely tomorrow. Some mild pain though minimal while resting. Nervous about the surgery. No change to main consultation note done by Dr. Wang this morning.
--- NOTE | 2018-05-20 18:12 | Orthopedic Progress Note ---
Date of Service May 20, 2018 Patient is status post ORIF of her left femur by Dr. Nunn. It was felt to be healing radiographically. Recently developed some increasing soreness and inability to bear weight. Patient also has history of having foot surgery on the right and had difficulty healing required ultrasound bone stimulator because of delayed union or nonunion situation in her foot by her history. 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 Clearly has a nonunion due to fracture plate and CT scan suggested as well. I discussed with her at this time she is going require plate removal further fixation possibly another plate possible allograft strut graft cerclage wires possible bone grafting or injections of other materials to stimulate nonunion to heal i.e. stem cells or bone morphogenic protein (infuse). I think this can be performed urgently but not necessarily emergently. I think this might be best performed at a trauma center where they better equipped to perform complex procedure such as this. Options are keeping her on a walker toe-touch/nonweightbearing left lower extremity placement and following up at tertiary care center or possible transfer. Subjective She has minor pain in her left leg she has no pain at rest. Physical Exam Vital Signs (Past 24 Hours): Last Vital Signs Temp 36.6 C 05/20/18 15:11 Pulse 77 05/20/18 15:11 Resp 16 05/20/18 15:11 BP 150/70 H 05/20/18 15:11 Pulse Ox 96 05/20/18 15:11 Physical Exam: Several left thigh demonstrates there is no instability of the femur I can rotate her femur and there is no crepitation. She has minor soreness with range of motion distal neurological exam is intact. Knee exam success with knee replacement and has some small effusion. She does have some tenderness over IT band which she says been going on since the surgery.
[2018-05-20] MEDS: ZOLPIDEM TARTRATE 5 MG TAB PO PRN (23:03)
[2018-05-21] MEDS: D5W AND 1/2NSS 1,000 ML IV SCH ×2 (01:58→12:44)
[2018-05-21] MEDS: CARBIDOPA/LEVODOPA 25/100MG TAB PO SCH ×4 (06:22→17:34)
[2018-05-21] MEDS: CARBIDOPA/LEVODOPA 25/100MG EXT REL TAB PO SCH (06:23)
[2018-05-21] MEDS: HYDROCODONE/ACETAMOPHEN 5/325MG TAB PO PRN ×2 (06:25→21:42)
[2018-05-21] MEDS: FERROUS SULFATE 325 MG TAB PO SCH ×2 (09:03→17:33)
[2018-05-21] MEDS: CHOLECALCIFEROL 1,000 UNITS TAB PO SCH (09:03)
--- NOTE | 2018-05-21 11:35 | Orthopedic Progress Note ---
Date of Service May 21, 2018 Assessment & Plan (1) Nondisplaced fracture of femur with nonunion: I discussed treatment options with her. This includes nonweightbearing with brace immobilization versus nonunion takedown and revision ORIF. My concern is given her history of nonunions is there additional metabolic issues at work that need to be worked up and addressed as well. We discussed possible transfer to a tertiary care facility and she is interested in this. We will make arrangements for transfer to [place] for treatment of complex nonunion with possible underlying metabolic disorder. Physical Exam Vital Signs (Past 24 Hours): Last Vital Signs Temp 36.7 C 05/21/18 07:56 Pulse 74 05/21/18 07:56 Resp 18 05/21/18 07:56 BP 132/78 05/21/18 07:56 Pulse Ox 94 05/21/18 07:56
[2018-05-21] MEDS: SERTRALINE HCL 100 MG TABLET PO SCH ×2 (12:46→21:34)
[2018-05-21] MEDS: SUMAtriptan succinate 100 MG TAB PO PRN (14:15)
[2018-05-21 16:49] LABS: Albumin Level 3.7 gm/dl (3.4-5.0); C Reactive Protein 1.11 mg/dl (0-0.29); Prealbumin 25.4 mg/dl (20-40)
--- NOTE | 2018-05-21 19:31 | Hospitalist Progress Note ---
Date of Service May 21, 2018 Assessment & Plan (1) Femur fracture, left: Patient with fracture of left femur, failure of hardware. This is considered a nonunion and she has a history of nonunion in her foot apparently as well in the past Orthopedic surgery here discussed with trauma surgery at [facility] and feel she would be best served by having a possible surgical repair with them in [facility]. They have arranged for outpatient follow-up next week. For now, will consult PT/OT and await evaluations as she likely needs to go to rehab in the meantime while awaiting that consultation. Patient is low risk for perioperative MACE. She has no known CAD, arrhythmia or lung disease. Able to complete 4 mets of activity without exertional symptoms, although activity is limited by pain recently. -Continue pain control with Hydrocodone per primary team -Continue bowel regimen - Senna/Docusate - will restart Eliquis at this time as it will be at least for 5 more days before she would have the surgery -She can toe-touch weight-bear as tolerated for now with knee immobilizer in place as per orthopedics -Surgery down there is also requesting some bone metabolic workup-labs as per orthopedics (2) Parkinson's disease (tremor, stiffness, slow motion, unstable posture): Chronic. Well controlled with home medication regimen -Continue Carbidopa/Levodopa at home dosage -Continue Amantadine -Continue to monitor (3) Anxiety: Stable now -Continue Sertraline 100mg po qHS and 50mg po BID -Continue Clonazepam 0.25mg po TID (4) Migraine: Chronic. -Sumatriptan PRN (5) DVT (deep venous thrombosis): Patient with history of provoked DVT x 2, on Eliquis anticoagulation. -Okay to restart Eliquis at this time, but would need to be held 2 days prior to surgery -She states she actually does not take aspirin anymore at home and therefore this does not need to be held-I will remove it from the home medication list (6) DVT prophylaxis: Restarting Eliquis Disposition-remain here overnight, PT/OT evaluations and possible transfer to acute rehab tomorrow Subjective Patient reports pain is controlled in the left knee. We reviewed her home medication list extensively and made some corrections. She denies chest pain or shortness of breath, no other concerns. She is tolerating p.o. I discussed the case at length today multiple times with orthopedic PA Review of Systems All systems reviewed & are unremarkable except as noted in HPI & below Physical Exam Vital Signs (Past 24 Hours): Last Vital Signs Temp 36.6 C 05/21/18 15:42 Pulse 71 05/21/18 15:42 Resp 17 05/21/18 15:42 BP 144/85 H 05/21/18 15:42 Pulse Ox 96 05/21/18 15:42 Constitutional: WD/WN, vitals as above Eyes: PERRL, conjunctivae normal, anicteric sclerae ENMT: external ear and nose normal, oropharynx normal Neck: trachea midline, no thyromegaly Respiratory: normal respiratory effort, lungs clear to auscultation Cardiovascular: RRR, no murmur, no edema Gastrointestinal (Abdomen): normal bowel sounds, soft, nontender, no hepatosplenomegaly Musculoskeletal: Extremities: + extremities abnormal to inspection (Left lower extremity knee immobilizer not removed for this examination, able to plantar and dorsiflex with feet bilaterally), no cyanosis and no clubbing Skin: no rashes, warm and dry Neurologic: moves all extremities and awake Motor/Sensory: + tremor (Resting tremor in the arms) Psychiatric: A+Ox3, euthymic affect Results & Data Laboratory Results 05/21/18 05/21/18 05/21/18 Range/Units 16:09 16:09 16:09 ESR 19 (0-21) mm/hr C-Reactive Protein 1.11 H (0-0.29) mg/dl Albumin 3.7 (3.4-5.0) gm/dl Prealbumin 25.4 (20-40) mg/dl 25-OH Vitamin D Total 33.5 (30-100) ng/ml TSH 0.890 (0.300-4.500) uIu/ml (1) DVT (deep venous thrombosis) Affected thrombotic vein of extremity: unspecified vein of extremity Chronicity: unspecified DVT location: lower extremity Laterality: left Qualified Code(s): I82.402 - Acute embolism and thrombosis of unspecified deep veins of left lower extremity (2) Migraine Intractability: not intractable Migraine type: other Status migrainosus presence: without status migrainosus Qualified Code(s): G43.809 - Other migraine, not intractable, without status migrainosus (3) Femur fracture, left Encounter type: subsequent encounter Femur location: distal Fracture healing: with routine healing Fracture morphology: other fracture Fracture type: closed Qualified Code(s): S72.492D - Other fracture of lower end of left femur, subsequent encounter for closed fracture with routine healing
[2018-05-21] MEDS ORDERED: ENOXAPARIN INJ 60 MG/0.6 ML SYR SQ SCH (21:00)
[2018-05-21] MEDS: DOCUSATE SODIUM/SENNA 50/8.6MG TAB PO SCH (21:33)
[2018-05-21] MEDS: CARBIDOPA/LEVODOPA 50/200MG EXT REL TAB PO SCH (21:34)
[2018-05-21] MEDS: APIXABAN 5 MG TABLET PO SCH (21:35)
[2018-05-21] MEDS: clonazePAM 0.5 MG TAB PO SCH (21:35)
[2018-05-22] MEDS: ZOLPIDEM TARTRATE 5 MG TAB PO PRN (00:32)
[2018-05-22] MEDS: clonazePAM 0.5 MG TAB PO SCH ×3 (05:11→21:25)
[2018-05-22] MEDS: HYDROCODONE/ACETAMOPHEN 5/325MG TAB PO PRN ×2 (05:11→19:21)
[2018-05-22] MEDS: SERTRALINE HCL 100 MG TABLET PO SCH ×2 (05:12→21:26)
[2018-05-22] MEDS: AMANTADINE HCL 100 MG CAPSULE PO SCH ×3 (05:13→12:15)
[2018-05-22] MEDS: APIXABAN 5 MG TABLET PO SCH ×2 (05:13→19:12)
[2018-05-22] MEDS: CARBIDOPA/LEVODOPA 25/100MG EXT REL TAB PO SCH (05:13)
[2018-05-22] MEDS: CARBIDOPA/LEVODOPA 25/100MG TAB PO SCH ×4 (05:14→19:12)
[2018-05-22] MEDS: SUMAtriptan succinate 100 MG TAB PO PRN (09:02)
[2018-05-22] MEDS: MULTIVITAMIN TAB PO SCH (09:05)
[2018-05-22] MEDS: CALCIUM CARBONATE 500 MG CHEWABLE TAB PO SCH (09:08)
[2018-05-22] MEDS: CHOLECALCIFEROL 1,000 UNITS TAB PO SCH (09:08)
--- NOTE | 2018-05-22 10:09 | Orthopedic Progress Note ---
Date of Service May 22, 2018 Assessment & Plan (1) Nondisplaced fracture of femur with nonunion: -Arrangements currently being made for the patient to be seen in [place] at [facility]. -Current plans will be to have the patient seen in the office by Dr. Ivan Cortez on Thursday next week at 1:10 PM in [place]. -We will start the patient on PT and OT protocols, toe-touch weightbearing with immobilizer on the left knee. -[facility] has asked for a metabolic workup and lab work has been ordered for this. -We will also have a copy of x-rays put on a CD for the patient to take down with her. We will see how she progresses with her PT. -If she is tolerating the toe-touch weightbearing without much difficulty, possibility will be to discharge her to home and then transferred down to [place] to see Dr. Cortez. If she is not managing well with her physical therapy, we will [facility] care home facility. Subjective Patient seen laying in bed, comfortable, denies pain, no acute issues. Hasen't been up with PT yet. Physical Exam Vital Signs (Past 24 Hours): Last Vital Signs Temp 36.6 C 05/22/18 06:58 Pulse 82 05/22/18 06:58 Resp 16 05/22/18 06:58 BP 131/80 05/22/18 06:58 Pulse Ox 95 05/22/18 06:58 Physical Exam: LLE NVSI +EHL/FHL/TA/GS SILT grossly, +2 DP pulse, compartments soft NT Constitutional: WD/WN, vitals as above
[2018-05-22] MEDS ORDERED: SERTRALINE HCL 100 MG TABLET PO SCH (14:00)
[2018-05-22] MEDS: CARBIDOPA/LEVODOPA 50/200MG EXT REL TAB PO SCH (21:26)
[2018-05-22] MEDS: DOCUSATE SODIUM/SENNA 50/8.6MG TAB PO SCH (21:27)
[2018-05-23] MEDS: CARBIDOPA/LEVODOPA 25/100MG TAB PO SCH ×4 (05:50→18:13)
[2018-05-23] MEDS: APIXABAN 5 MG TABLET PO SCH ×2 (05:50→18:13)
[2018-05-23] MEDS: clonazePAM 0.5 MG TAB PO SCH ×3 (05:50→20:48)
[2018-05-23] MEDS: AMANTADINE HCL 100 MG CAPSULE PO SCH ×3 (05:52→13:15)
[2018-05-23] MEDS: CARBIDOPA/LEVODOPA 25/100MG EXT REL TAB PO SCH (05:52)
[2018-05-23] MEDS: SERTRALINE HCL 100 MG TABLET PO SCH ×2 (05:52→20:49)
--- NOTE | 2018-05-23 06:52 | Hospitalist Progress Note ---
Date of Service May 22, 2018 Assessment & Plan (1) Femur fracture, left: Patient with fracture of left femur, failure of hardware. 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 They have arranged for outpatient follow-up next week. For now, needs to go to rehab in the meantime while awaiting that consultation as above. Patient is low risk for perioperative MACE. She has no known CAD, arrhythmia or lung disease. Able to complete 4 mets of activity without exertional symptoms, although activity is limited by pain recently. -Continue pain control with Hydrocodone per primary team -Continue bowel regimen - Senna/Docusate -She will continue on her Eliquis at this time and would recommend holding at least 2 days prior to an upcoming surgery if scheduled next week -She can toe-touch weight-bear as tolerated for now with knee immobilizer in place as per orthopedics -Surgery at [facility] was requesting some bone metabolic workup-labs as per orthopedics which have been drawn-TSH, prealbumin, albumin all normal, vitamin D 33, ESR 19 which is normal for her age, CRP mildly elevated at 1 (2) Parkinson's disease (tremor, stiffness, slow motion, unstable posture): Chronic. Well controlled with home medication regimen -Continue Carbidopa/Levodopa at home dosage -Continue Amantadine -Continue to monitor (3) Anxiety: Stable now -Continue Sertraline 100mg po qHS and 50mg po BID -Continue Clonazepam 0.25mg po TID (4) Migraine: Chronic. -Sumatriptan PRN (5) DVT (deep venous thrombosis): Patient with history of provoked DVT x 2, on Eliquis anticoagulation. -Restarted Eliquis at this time, but would need to be held 2 days prior to surgery -She states she actually does not take aspirin anymore at home and therefore this does not need to be held-I will remove it from the home medication list (6) DVT prophylaxis: Eliquis as above Disposition-awaiting placement at rehab facility-hopeful for tomorrow Hospitalist service will sign off at this time as patient is medically stable for discharge-please feel free to reconsult as needed. Thank you. Subjective Patient feels achy in her left lower extremity at the fracture site, but otherwise is doing okay. She is tolerating p.o., no nausea or vomiting. No bleeding from any site. She was fearful of falling when she was up with physical therapy today and is definitely in agreement with going to rehab when available. Denies chest pain or shortness of breath. Review of Systems All systems reviewed & are unremarkable except as noted in HPI & below Physical Exam Vital Signs (Past 24 Hours): Last Vital Signs Temp 36.9 C 05/22/18 23:03 Pulse 78 05/22/18 23:03 Resp 16 05/22/18 23:03 BP 119/75 05/22/18 23:03 Pulse Ox 96 05/22/18 23:03 Constitutional: WD/WN, vitals as above Eyes: PERRL, conjunctivae normal, anicteric sclerae Neck: trachea midline, no thyromegaly Respiratory: normal respiratory effort, lungs clear to auscultation Cardiovascular: RRR, no murmur, no edema Gastrointestinal (Abdomen): normal bowel sounds, soft, nontender, no hepatosplenomegaly Musculoskeletal: Extremities: + extremities abnormal to inspection (Left lower extremity knee immobilizer not removed for this examination, able to plantar and dorsiflex with feet bilaterally), no cyanosis and no clubbing Skin: no rashes, warm and dry Neurologic: moves all extremities and awake Motor/Sensory: + tremor (Resting tremor in the arms) Psychiatric: A+Ox3, euthymic affect Results & Data Laboratory Results No laboratory results available (1) DVT (deep venous thrombosis) Affected thrombotic vein of extremity: unspecified vein of extremity Chronicity: unspecified DVT location: lower extremity Laterality: left Qualified Code(s): I82.402 - Acute embolism and thrombosis of unspecified deep veins of left lower extremity (2) Migraine Intractability: not intractable Migraine type: other Status migrainosus presence: without status migrainosus Qualified Code(s): G43.809 - Other migraine, not intractable, without status migrainosus (3) Femur fracture, left Encounter type: subsequent encounter Femur location: distal Fracture healing: with routine healing Fracture morphology: other fracture Fracture type: closed Qualified Code(s): S72.492D - Other fracture of lower end of left femur, subsequent encounter for closed fracture with routine healing
--- NOTE | 2018-05-23 08:11 | Orthopedic Progress Note ---
Date of Service May 23, 2018 Assessment & Plan (1) Nondisplaced fracture of femur with nonunion: 67 yo female stable with left femoral nonunion/hardware failure 1. Med management 2. DVT prophylaxis- cont Eliquis, SCDs 3. PT/OT 4. D/C planning- [facility] if approved Subjective Pt resting in bed, pain controlled, denies complaints, states did ok in PT yesterday, PT recommending skilled rehab Physical Exam Vital Signs (Past 24 Hours): Last Vital Signs Temp 36.5 C 05/23/18 07:04 Pulse 71 05/23/18 07:04 Resp 16 05/23/18 07:04 BP 119/77 05/23/18 07:04 Pulse Ox 96 05/23/18 07:04 Physical Exam: Left leg benign
[2018-05-23] MEDS: SUMAtriptan succinate 100 MG TAB PO PRN (08:16)
[2018-05-23] MEDS: CALCIUM CARBONATE 500 MG CHEWABLE TAB PO SCH (08:17)
[2018-05-23] MEDS: MULTIVITAMIN TAB PO SCH (08:18)
[2018-05-23] MEDS: CHOLECALCIFEROL 1,000 UNITS TAB PO SCH (08:18)
[2018-05-23] MEDS: CARBIDOPA/LEVODOPA 50/200MG EXT REL TAB PO SCH (20:48)
[2018-05-23] MEDS: DOCUSATE SODIUM/SENNA 50/8.6MG TAB PO SCH (20:48)
[2018-05-23] MEDS: HYDROCODONE/ACETAMOPHEN 5/325MG TAB PO PRN (23:12)
[2018-05-23] MEDS: CALCIUM CARBONATE 500 MG CHEWABLE TAB PO PRN (23:43)
[2018-05-24] MEDS: CARBIDOPA/LEVODOPA 25/100MG EXT REL TAB PO SCH (06:05)
[2018-05-24] MEDS: CARBIDOPA/LEVODOPA 25/100MG TAB PO SCH ×4 (06:06→17:35)
[2018-05-24] MEDS: APIXABAN 5 MG TABLET PO SCH ×2 (06:07→17:35)
[2018-05-24] MEDS: AMANTADINE HCL 100 MG CAPSULE PO SCH ×3 (06:07→12:11)
[2018-05-24] MEDS: SERTRALINE HCL 100 MG TABLET PO SCH ×2 (06:07→21:41)
[2018-05-24] MEDS: clonazePAM 0.5 MG TAB PO SCH ×3 (06:13→21:40)
[2018-05-24] MEDS: MULTIVITAMIN TAB PO SCH (09:16)
[2018-05-24] MEDS: CHOLECALCIFEROL 1,000 UNITS TAB PO SCH (09:16)
[2018-05-24] MEDS: CALCIUM CARBONATE 500 MG CHEWABLE TAB PO SCH (09:17)
[2018-05-24] MEDS: HYDROCODONE/ACETAMOPHEN 5/325MG TAB PO PRN ×2 (09:19→23:45)
--- NOTE | 2018-05-24 10:01 | Orthopedic Progress Note ---
Date of Service May 24, 2018 Assessment & Plan (1) Nondisplaced fracture of femur with nonunion: 67 yo female stable with left femoral nonunion/hardware failure. 1. Med management. 2. DVT prophylaxis- cont Eliquis, SCDs. 3. PT/OT- TTWB w walker. 4. D/C planning- [facility] when authorization goes through, may need SNF if not approved at HS. Spoke with SS now, they have not heard from HS yet, will check in later today. 5. Patient is set to see trauma specialist at [facility] next week for definitive care of the left femur. Subjective sitting in chair, pain controlled, denies complaints, states did ok in PT. Denies SOB, CP, N/V. Physical Exam Vital Signs (Past 24 Hours): Last Vital Signs Temp 36.7 C 05/24/18 08:39 Pulse 66 05/24/18 08:39 Resp 20 05/24/18 08:39 BP 120/80 05/24/18 08:39 Pulse Ox 94 05/24/18 08:39 Physical Exam: Left knee immobilizer in tact, toes and ankle mobile. A&Ox3.
[2018-05-24] MEDS: CARBIDOPA/LEVODOPA 50/200MG EXT REL TAB PO SCH (21:41)
[2018-05-24] MEDS: DOCUSATE SODIUM/SENNA 50/8.6MG TAB PO SCH (21:41)
[2018-05-25] MEDS: APIXABAN 5 MG TABLET PO SCH ×2 (05:44→18:24)
[2018-05-25] MEDS: CARBIDOPA/LEVODOPA 25/100MG TAB PO SCH ×4 (05:44→18:24)
[2018-05-25] MEDS: SERTRALINE HCL 100 MG TABLET PO SCH ×2 (05:44→20:20)
[2018-05-25] MEDS: AMANTADINE HCL 100 MG CAPSULE PO SCH ×3 (05:44→11:21)
[2018-05-25] MEDS: clonazePAM 0.5 MG TAB PO SCH ×3 (05:45→20:20)
[2018-05-25] MEDS: CARBIDOPA/LEVODOPA 25/100MG EXT REL TAB PO SCH (05:45)
[2018-05-25] MEDS: CHOLECALCIFEROL 1,000 UNITS TAB PO SCH (08:00)
[2018-05-25] MEDS: CALCIUM CARBONATE 500 MG CHEWABLE TAB PO SCH (08:00)
[2018-05-25] MEDS: MULTIVITAMIN TAB PO SCH (08:03)
--- NOTE | 2018-05-25 13:21 | Orthopedic Progress Note ---
Date of Service May 25, 2018 Assessment & Plan (1) Nondisplaced fracture of femur with nonunion: 67 yo female stable with left femoral nonunion/hardware failure. 1. Med management. 2. DVT prophylaxis- cont Eliquis, SCDs. 3. PT/OT- TTWB w walker. 4. D/C planning- Insurance has denied [facility]. Family apparently trying to do a Family appeal. SNF's discussed with patient and will see how appeal turns out. 5. Patient is set to see trauma specialist (Dr Cortez) at [facility] next week for definitive care of the left femur. Subjective Pt currently sitting up in chair eating lunch. No complaints today. States that PT has had her up, bed to chair, to bathroom, and small walks in the room. She states she tires easily due to weakened upper body strength with the use of the walker. Otherwise, she feels she is doing well. Physical Exam Vital Signs (Past 24 Hours): Last Vital Signs Temp 36.6 C 05/25/18 07:08 Pulse 73 05/25/18 07:08 Resp 16 05/25/18 07:08 BP 113/68 05/25/18 07:08 Pulse Ox 98 05/25/18 11:48 Physical Exam: No overt changes in exam of LLE. NV intact. Calves soft, NT. No new increase in swelling. Using immobilizer.
[2018-05-25] MEDS: HYDROCODONE/ACETAMOPHEN 5/325MG TAB PO PRN (16:38)
[2018-05-25] MEDS: DOCUSATE SODIUM/SENNA 50/8.6MG TAB PO SCH (20:22)
[2018-05-25] MEDS: CARBIDOPA/LEVODOPA 50/200MG EXT REL TAB PO SCH (20:22)
[2018-05-26] MEDS: SERTRALINE HCL 100 MG TABLET PO SCH ×2 (05:27→21:35)
[2018-05-26] MEDS: APIXABAN 5 MG TABLET PO SCH ×2 (05:27→17:19)
[2018-05-26] MEDS: CARBIDOPA/LEVODOPA 25/100MG EXT REL TAB PO SCH (05:27)
[2018-05-26] MEDS: AMANTADINE HCL 100 MG CAPSULE PO SCH ×3 (05:27→12:09)
[2018-05-26] MEDS: CARBIDOPA/LEVODOPA 25/100MG TAB PO SCH ×4 (05:28→17:19)
[2018-05-26] MEDS: clonazePAM 0.5 MG TAB PO SCH ×3 (05:34→21:33)
[2018-05-26] MEDS: HYDROCODONE/ACETAMOPHEN 5/325MG TAB PO PRN ×3 (07:50→21:35)
[2018-05-26] MEDS: CALCIUM CARBONATE 500 MG CHEWABLE TAB PO SCH (08:42)
[2018-05-26] MEDS: MULTIVITAMIN TAB PO SCH (08:42)
[2018-05-26] MEDS: CHOLECALCIFEROL 1,000 UNITS TAB PO SCH (08:42)
--- NOTE | 2018-05-26 12:31 | Orthopedic Progress Note ---
Date of Service May 26, 2018 Assessment & Plan (1) Nondisplaced fracture of femur with nonunion: 67 yo female stable with left femoral nonunion/hardware failure. 1. Med management. 2. DVT prophylaxis- cont Eliquis, SCDs. 3. PT/OT- TTWB w walker. 4. D/C planning- Insurance has denied [facility] health. Family apparently trying to do a Family appeal. SNF's discussed with patient and will see how appeal turns out. 5. Patient is set to see trauma specialist (Dr Cortez) at [facility] next week for definitive care of the left femur. Subjective No new complaints today. Patient states that her is currently undertaking a family appeal to her insurance to try and get approved for [facility] rehab. Case management has discussed further options with custodial facilities and [facility] has been chosen if the appeal is not approved. Physical Exam Vital Signs (Past 24 Hours): Last Vital Signs Temp 36.7 C 05/26/18 07:35 Pulse 78 05/26/18 07:35 Resp 18 05/26/18 07:35 BP 107/59 L 05/26/18 07:35 Pulse Ox 97 05/26/18 11:33 Physical Exam: No changes in exam. Patient continues to use immobilizer when out of bed. Denies increased pain at this time. Neurovascular intact. Calves are soft nontender. Toes are mobile. Mentions having mild pain in the knee earlier today which has lessened.
[2018-05-26] MEDS: CARBIDOPA/LEVODOPA 50/200MG EXT REL TAB PO SCH (21:34)
[2018-05-26] MEDS: DOCUSATE SODIUM/SENNA 50/8.6MG TAB PO SCH (21:34)
[2018-05-27] MEDS: APIXABAN 5 MG TABLET PO SCH ×2 (05:22→17:29)
[2018-05-27] MEDS: CARBIDOPA/LEVODOPA 25/100MG TAB PO SCH ×4 (05:22→17:29)
[2018-05-27] MEDS: CARBIDOPA/LEVODOPA 25/100MG EXT REL TAB PO SCH (05:22)
[2018-05-27] MEDS: SERTRALINE HCL 100 MG TABLET PO SCH ×2 (05:22→21:00)
[2018-05-27] MEDS: AMANTADINE HCL 100 MG CAPSULE PO SCH ×3 (05:23→11:39)
[2018-05-27] MEDS: HYDROCODONE/ACETAMOPHEN 5/325MG TAB PO PRN ×2 (05:36→21:00)
[2018-05-27] MEDS: clonazePAM 0.5 MG TAB PO SCH ×3 (05:37→21:00)
[2018-05-27] MEDS: CALCIUM CARBONATE 500 MG CHEWABLE TAB PO SCH (08:07)
[2018-05-27] MEDS: MULTIVITAMIN TAB PO SCH (08:09)
[2018-05-27] MEDS: CHOLECALCIFEROL 1,000 UNITS TAB PO SCH (08:09)
[2018-05-27] MEDS: DOCUSATE SODIUM/SENNA 50/8.6MG TAB PO SCH (21:01)
[2018-05-27] MEDS: CARBIDOPA/LEVODOPA 50/200MG EXT REL TAB PO SCH (21:01)
[2018-05-28] MEDS: SERTRALINE HCL 100 MG TABLET PO SCH ×2 (05:39→20:45)
[2018-05-28] MEDS: APIXABAN 5 MG TABLET PO SCH ×2 (05:39→17:27)
[2018-05-28] MEDS: clonazePAM 0.5 MG TAB PO SCH ×3 (05:39→20:44)
[2018-05-28] MEDS: CARBIDOPA/LEVODOPA 25/100MG TAB PO SCH ×4 (05:40→17:27)
[2018-05-28] MEDS: CARBIDOPA/LEVODOPA 25/100MG EXT REL TAB PO SCH (05:40)
[2018-05-28] MEDS: AMANTADINE HCL 100 MG CAPSULE PO SCH ×3 (05:40→11:56)
[2018-05-28] MEDS: HYDROCODONE/ACETAMOPHEN 5/325MG TAB PO PRN ×3 (06:10→20:48)
[2018-05-28] MEDS: CALCIUM CARBONATE 500 MG CHEWABLE TAB PO SCH (07:30)
[2018-05-28] MEDS: CHOLECALCIFEROL 1,000 UNITS TAB PO SCH (07:31)
[2018-05-28] MEDS: MULTIVITAMIN TAB PO SCH (07:31)
--- NOTE | 2018-05-28 08:54 | Orthopedic Progress Note ---
Date of Service May 27, 2018 Assessment & Plan (1) Nondisplaced fracture of femur with nonunion: 67 yo female stable with left femoral nonunion/hardware failure. 1. Med management. 2. DVT prophylaxis- cont Eliquis, SCDs. 3. PT/OT- TTWB w walker. 4. D/C planning- Insurance has denied [facility]. Family apparently trying to do a Family appeal. SNF's discussed with patient and will see how appeal turns out. 5. Patient is set to see trauma specialist (Dr Cortez) at [facility] next week for definitive care of the left femur. Subjective Patient seen resting comfortably in bed, no acute issues, awaiting placement Review of Systems Review of Systems: All systems reviewed & are unremarkable except as noted in HPI & below Constitutional: as per Subjective / HPI Physical Exam Physical Exam: RLE NVSI +EHL/FHL/TA/GS SILT grossly, +2 DP pulse, compartments soft NT Constitutional: WD/WN, vitals as above Results & Data Vital Signs (Past 12 Hours) Vital Signs Temp Pulse Resp BP BP Pulse Ox 05/28/18 07:24 36.8 C 73 16 114/62 98 05/27/18 22:56 36.7 C 76 18 127/78 96
[2018-05-28 09:03] LABS: BUN Creatinine Ratio 29.3 (10-20); Calcium 9.9 mg/dl (8.5-10.1); Creatinine Clr Calc Pharmacy 81.9 ml/min; Est GFR (African American) 113.2; Est GFR (Non-African American) 97.6; Magnesium 2.2 mg/dl (1.8-2.4); Potassium 4.2 mmol/L (3.5-5.1)
[2018-05-28 09:07] LABS: Hematocrit (blood only) 38.7 % (37-47); Hemoglobin 13.1 g/dL (12.0-16.0); Mean Corpuscular Hgb Conc 33.9 g/dL (32-36); Mean Platelet Volume 9.3 fL (7.4-10.4); Platelet Count 345 K/uL (130-400); RDW Coefficient of Variation 14.5 % (11.5-14.5); RDW Standard Deviation 47.6 fL (36.4-46.3); Red Blood Count 3.87 M/uL (4.2-5.4); White Blood Count 9.71 K/uL (4.8-10.8)
--- NOTE | 2018-05-28 10:08 | Orthopedic Progress Note ---
Date of Service May 28, 2018 Assessment & Plan (1) Nondisplaced fracture of femur with nonunion: 67 yo female stable with left femoral nonunion/hardware failure. 1. Med management. 2. DVT prophylaxis- cont Eliquis 3. PT/OT- TTWB w walker. 4. D/C planning- Insurance has denied [facility] health. Multiple SNF's being looked into. Plan for transfer to SNF with intent to have pt seen in [place] next week (Thursday) as noted below. 5. Patient is set to see trauma specialist (Dr Cortez) at [facility] next week for definitive care of the left femur. Subjective Pt sitting in chair at bedside this AM. No complaints currently. Pain controlled. States she's waiting to hear from CM about other SNF choices. Physical Exam Physical Exam: Continues with knee immobilizer. Calves soft, NT. NV intact. Results & Data Vital Signs (Past 12 Hours) Vital Signs Temp Pulse Resp BP BP Pulse Ox 05/28/18 07:24 36.8 C 73 16 114/62 98 05/27/18 22:56 36.7 C 76 18 127/78 96
[2018-05-28] MEDS: CARBIDOPA/LEVODOPA 50/200MG EXT REL TAB PO SCH (20:46)
[2018-05-28] MEDS: DOCUSATE SODIUM/SENNA 50/8.6MG TAB PO SCH (20:46)
--- NOTE | 2018-05-28 22:28 | Hospitalist Progress Note ---
Date of Service May 28, 2018 Assessment & Plan (1) Nondisplaced fracture of femur with nonunion: Left. Management per ortho. Apparently to be evaluated at [facility] next week to determine course of action and if surgery is needed. Immobilizer. Pain control. (2) DVT (deep venous thrombosis): h/o LLE DVT in 2018. repeat dopplers this admission of LLE w/o DVT. remains on eliquis BID. (3) Parkinson's disease (tremor, stiffness, slow motion, unstable posture): cont sinemet (4) Foot pain: suspect some form of neuropathy. consider TSH, b12, etc. consider gabapentin or similar med if pain persists or worsens and/or patient desires Rx all labs this AM were normal awaiting disposition - SW involved Subjective patient sitting in chair comfortably c/o b/l foot numbness/burning at times minimal left leg pain today no other complaints Review of Systems Constitutional: no fever Respiratory: no dyspnea Cardiovascular: no chest pain Gastrointestinal: no abdominal pain Physical Exam Constitutional: well developed and well nourished; no acute distress ENMT: external ear and nose normal, oropharynx normal Respiratory: normal respiratory effort, lungs clear to auscultation Cardiovascular: Rate/Rhythm: regular rate and regular rhythm Heart Sounds: normal S1 and normal S2; no murmur Vessels: posterior tibial pulses present and dorsalis pedis pulses present; no JVD Extremities: no edema Gastrointestinal (Abdomen): normal bowel sounds, soft, nontender, no hepatosplenomegaly Musculoskeletal: left leg in immobilizer; no foot deformities or skin rashes/lesions on feet Neurologic: moves all extremities; no focal motor deficits Psychiatric: A+Ox3, euthymic affect Results & Data Vital Signs (Past 12 Hours) Vital Signs Temp Pulse Resp BP Pulse Ox 05/28/18 15:00 36.6 C 84 18 95/60 L 95 Laboratory Results Laboratory Results - last 24 hr 05/28/18 05/28/18 08:20 08:20 WBC 9.71 RBC 3.87 L Hgb 13.1 Hct 38.7 MCV 100.0 MCH 33.9 MCHC 33.9 RDW Std Deviation 47.6 H RDW Coeff of Valeria 14.5 Plt Count 345 MPV 9.3 Sodium 138 Potassium 4.2 Chloride 103 Carbon Dioxide 31 Anion Gap 4.0 BUN 16 Creatinine 0.54 L Est Cr Clr Drug Dosing 81.9 Est GFR ( Amer) 113.2 Est GFR (Non-Af Amer) 97.6 BUN/Creatinine Ratio 29.3 H Glucose 98 Calcium 9.9 Magnesium 2.2 (1) DVT (deep venous thrombosis) DVT location: lower extremity Affected thrombotic vein of extremity: unspecified vein of extremity Chronicity: unspecified Laterality: left Qualified Code(s): I82.402 - Acute embolism and thrombosis of unspecified deep veins of left lower extremity (2) Foot pain Laterality: bilateral Qualified Code(s): M79.671 - Pain in right foot; M79.672 - Pain in left foot
[2018-05-28] MEDS: CALCIUM CARBONATE 500 MG CHEWABLE TAB PO PRN (23:21)
[2018-05-29] MEDS: AMANTADINE HCL 100 MG CAPSULE PO SCH ×3 (05:43→11:44)
[2018-05-29] MEDS: SERTRALINE HCL 100 MG TABLET PO SCH ×2 (05:43→20:55)
[2018-05-29] MEDS: clonazePAM 0.5 MG TAB PO SCH ×3 (05:43→20:55)
[2018-05-29] MEDS: HYDROCODONE/ACETAMOPHEN 5/325MG TAB PO PRN ×4 (05:43→23:52)
[2018-05-29] MEDS: CARBIDOPA/LEVODOPA 25/100MG TAB PO SCH ×4 (05:44→17:27)
[2018-05-29] MEDS: APIXABAN 5 MG TABLET PO SCH ×2 (05:44→17:27)
[2018-05-29] MEDS: CARBIDOPA/LEVODOPA 25/100MG EXT REL TAB PO SCH (06:12)
[2018-05-29] MEDS: MULTIVITAMIN TAB PO SCH (08:39)
[2018-05-29] MEDS: CALCIUM CARBONATE 500 MG CHEWABLE TAB PO SCH (08:39)
[2018-05-29] MEDS: CHOLECALCIFEROL 1,000 UNITS TAB PO SCH (08:41)
--- NOTE | 2018-05-29 10:25 | Orthopedic Progress Note ---
Date of Service May 29, 2018 Assessment & Plan (1) Nondisplaced fracture of femur with nonunion: 67 yo female stable with left femoral nonunion/hardware failure. 1. Med management. 2. DVT prophylaxis- cont Eliquis 3. PT/OT- TTWB w walker. 4. D/C planning- Insurance has denied [facility] health. Multiple SNF's being looked into. Possible d/c Thursday to SNF. Plan for transfer to SNF with intent to have pt seen in [place] next week (Thursday) as noted below. 5. Patient is set to see trauma specialist (Dr Cortez) at [facility] next week for definitive care of the left femur. Subjective patient sitting in chair comfortably mild left leg pain today no other complaints Physical Exam Physical Exam: Patient in chair comfortable, WN/WD no acute distress. Immobilizer in place. N/V status and sensation intact. Results & Data Vital Signs (Past 12 Hours) Vital Signs Temp Pulse Pulse Resp BP BP Pulse Ox 05/29/18 07:40 36.6 C 76 18 110/78 97 05/28/18 23:14 36.5 C 82 17 132/75 97
[2018-05-29] MEDS: DOCUSATE SODIUM/SENNA 50/8.6MG TAB PO SCH (20:56)
[2018-05-29] MEDS: CARBIDOPA/LEVODOPA 50/200MG EXT REL TAB PO SCH (20:56)
[2018-05-30] MEDS: APIXABAN 5 MG TABLET PO SCH ×2 (05:25→18:10)
[2018-05-30] MEDS: clonazePAM 0.5 MG TAB PO SCH ×3 (05:25→20:28)
[2018-05-30] MEDS: SERTRALINE HCL 100 MG TABLET PO SCH ×2 (05:25→20:29)
[2018-05-30] MEDS: AMANTADINE HCL 100 MG CAPSULE PO SCH ×3 (05:26→11:07)
[2018-05-30] MEDS: CARBIDOPA/LEVODOPA 25/100MG EXT REL TAB PO SCH (05:26)
[2018-05-30] MEDS: CARBIDOPA/LEVODOPA 25/100MG TAB PO SCH ×4 (05:26→18:10)
[2018-05-30] MEDS: HYDROCODONE/ACETAMOPHEN 5/325MG TAB PO PRN ×3 (07:43→18:10)
[2018-05-30] MEDS: CHOLECALCIFEROL 1,000 UNITS TAB PO SCH (07:44)
[2018-05-30] MEDS: MULTIVITAMIN TAB PO SCH (07:44)
[2018-05-30] MEDS: CALCIUM CARBONATE 500 MG CHEWABLE TAB PO SCH (07:45)
--- NOTE | 2018-05-30 08:17 | Orthopedic Progress Note ---
Date of Service May 30, 2018 Assessment & Plan (1) Nondisplaced fracture of femur with nonunion: 67 yo female stable with left femoral nonunion/hardware failure. 1. Med management. 2. DVT prophylaxis- cont Eliquis 3. PT/OT- TTWB w walker. 4. D/C planning- Insurance has denied [facility] health. Multiple SNF's being looked into. Possible d/c Thursday to SNF. Plan for transfer to SNF with intent to have pt seen in [place] (Thursday) as noted below. 5. Patient is set to see trauma specialist (Dr Cortez) at [facility] Thursday for definitive care of the left femur. Subjective Patient resting in bed comfortably. Pain improved from yesterday. Denies any other complaints. Physical Exam Physical Exam: Patient in bed comfortably, WN/WD no acute distress. Immobilizer in place. N/V status and sensation intact. Results & Data Vital Signs (Past 12 Hours) Vital Signs Temp Pulse Pulse Resp BP BP Pulse Ox 05/30/18 06:57 36.5 C 75 14 106/67 95 05/29/18 23:18 36.9 C 90 17 107/64 95
[2018-05-30] MEDS: DOCUSATE SODIUM/SENNA 50/8.6MG TAB PO SCH (20:29)
[2018-05-30] MEDS: CARBIDOPA/LEVODOPA 50/200MG EXT REL TAB PO SCH (20:29)
[2018-05-31] MEDS: APIXABAN 5 MG TABLET PO SCH ×2 (05:55→17:06)
[2018-05-31] MEDS: clonazePAM 0.5 MG TAB PO SCH ×3 (05:55→21:14)
[2018-05-31] MEDS: SERTRALINE HCL 100 MG TABLET PO SCH ×2 (05:56→21:15)
[2018-05-31] MEDS: CARBIDOPA/LEVODOPA 25/100MG EXT REL TAB PO SCH (05:57)
[2018-05-31] MEDS: AMANTADINE HCL 100 MG CAPSULE PO SCH ×3 (05:57→11:41)
[2018-05-31] MEDS: CARBIDOPA/LEVODOPA 25/100MG TAB PO SCH ×4 (05:58→17:06)
[2018-05-31] MEDS: HYDROCODONE/ACETAMOPHEN 5/325MG TAB PO PRN ×2 (05:59→15:13)
[2018-05-31] MEDS: MULTIVITAMIN TAB PO SCH (08:25)
[2018-05-31] MEDS: CHOLECALCIFEROL 1,000 UNITS TAB PO SCH (08:27)
[2018-05-31] MEDS: CALCIUM CARBONATE 500 MG CHEWABLE TAB PO SCH (08:27)
--- NOTE | 2018-05-31 13:40 | Orthopedic Progress Note ---
Date of Service May 31, 2018 Assessment & Plan (1) Nondisplaced fracture of femur with nonunion: 67 yo female stable with left femoral nonunion/hardware failure. 1. Med management. 2. DVT prophylaxis- cont Eliquis 3. PT/OT- TTWB w walker. 4. D/C planning- Discussed the case with CM today. Arrangements made with [facility]. Pt's will be here to pick her up at 9 am tomorrow. He will drive her to [facility] to see Dr Cortez for her appointment. Then they will go to [facility] to await planned surgery for the LLE. Subjective Pt sitting up in chair at bedside. States her knee feels a bit more swollen today. No noticeable increase in pain. No other complaints at this time. Discussed arrangements made with [facility]. Pt agreeable. Physical Exam Physical Exam: Immobilizer opened up. No erythema noted. Knee might have a bit of swelling since last seen but not overtly so. Knee is NT on palpation. Immobilizer put back on. NV intact, Toes mobile. Results & Data Vital Signs (Past 12 Hours) Vital Signs Temp Pulse Resp BP Pulse Ox 05/31/18 07:18 36.6 C 76 16 115/69 97
[2018-05-31] MEDS: DOCUSATE SODIUM/SENNA 50/8.6MG TAB PO SCH (21:14)
[2018-05-31] MEDS: CARBIDOPA/LEVODOPA 50/200MG EXT REL TAB PO SCH (21:15)
[2018-06-01] MEDS: clonazePAM 0.5 MG TAB PO SCH (05:36)
[2018-06-01] MEDS: APIXABAN 5 MG TABLET PO SCH (05:36)
[2018-06-01] MEDS: SERTRALINE HCL 100 MG TABLET PO SCH (05:36)
[2018-06-01] MEDS: AMANTADINE HCL 100 MG CAPSULE PO SCH ×2 (05:37→08:41)
[2018-06-01] MEDS: CARBIDOPA/LEVODOPA 25/100MG EXT REL TAB PO SCH (05:38)
[2018-06-01] MEDS: CARBIDOPA/LEVODOPA 25/100MG TAB PO SCH ×2 (05:38→08:41)
--- NOTE | 2018-06-01 07:18 | Orthopedic Progress Note ---
Date of Service June 01, 2018 Assessment & Plan (1) Nondisplaced fracture of femur with nonunion: 67 yo female stable with left femoral nonunion/hardware failure. 1. Med management. 2. DVT prophylaxis- cont Eliquis 3. PT/OT- TTWB w walker. 4. D/C planning- CM made arrangements made with [facility]. Pt's will be here to pick her up at 9 am today. He will drive her to [facility] to see Dr Cortez for her appointment. Then they will go to [facility] to await planned surgery for the LLE. Radiology CD discs on chart for appointment. Subjective Pt lying in bed, awake, alert. No complaints this AM. Pain controlled. Planning for DC today. Physical Exam Physical Exam: Immobilizer removed for exam. No area's of erythema. Knee is NT on palpation. Calves, soft, NT. NV intact. Toes/ankle mobile. Immobilizer put back on. Results & Data Vital Signs (Past 12 Hours) Vital Signs Temp Pulse Resp BP Pulse Ox 05/31/18 23:38 36.7 C 82 16 99/60 L 96
[2018-06-01] MEDS: HYDROCODONE/ACETAMOPHEN 5/325MG TAB PO PRN (08:41)
[2018-06-01] MEDS: CALCIUM CARBONATE 500 MG CHEWABLE TAB PO SCH (08:42)
[2018-06-01] MEDS: CHOLECALCIFEROL 1,000 UNITS TAB PO SCH (08:42)
[2018-06-01] MEDS: MULTIVITAMIN TAB PO SCH (08:42)
--- NOTE | 2018-06-07 17:46 | Discharge Summary ---
DISCHARGE DIAGNOSIS: Nondisplaced fracture, left distal femur with nonunion and fracture of hardware. SECONDARY DIAGNOSES: Parkinson's disease, history of DVT on chronic Eliquis therapy, anxiety, history of migraine headaches. CONSULTS: Dr. Mame Wang. COMPLICATIONS: None. PROCEDURES: None. BRIEF HISTORY: As dictated in history and physical. HOSPITAL SUMMARY: The patient was admitted on the above-noted date with the above-noted fracture. The patient was seen by Dr. Castillo on the day of admission as well and through exam noted that she did have a stable fracture. There was no crepitation and she had minimal discomfort with range of motion with internal and external rotation as well as flexion and extension of the knee. She had minimal to mild effusion of the knee and had some IT band tenderness of which apparently has been going on since her surgery for fracture of the femur in October of 2017. At that point in time a large [employer] periarticular fracture plate had been applied. The patient denied any history of a fall and said she was having increased pain over time with weightbearing. She came in to be seen by the Emergency Room and it was noted that she had a nonunion/fracture of the original fracture site with also failure of the hardware with fracturing through the plate. Over the next several days x-rays were reviewed and discussed with [facility] physicians. The patient was comfortable at rest and only had difficulty with weightbearing. She had a history of nonunion of her left ankle and foot at one point in time from previous surgery. With the amount of surgery needed it was felt that this would be better served at a tertiary care facility which [facility] was chosen. Dr. Castillo arranged plans with Dr. Cortez at [facility] and a plan was formed to get her to the office of Dr. Cortez that following Thursday; however, the patient did not feel she was capable of going home and the felt that he could not take care of her. So then began a long process through case management of trying to find a skilled facility that the would agree upon and also would have a bed available. The patient ended up not going to her appointment on that Thursday of that initial week because there would have been no facility yet chosen for the patient to return to once she was discharged. She was continued on PT protocol, nonweightbearing on the left lower extremity and continued on some OT as well. The patient slowly improved over time and another appointment was made with Dr. Cortez's. A skilled facility was then finally decided upon by the patient's and herself. They did have a bed available. By 05/31/2018 the patient continued to remain medically stable. She had been continued on her DVT prophylaxis with SCDs, TEDs, hose and her Eliquis and was again slowly progressing with her PT as far as ambulation. By 06/01/2018 she was remaining stable, awake and alert without complaints. Pain was controlled. She had no areas of erythema around the knee and femur. Knee was nontender on palpation. Calves were soft, nontender. Neurovascularly intact. Toe and ankle were mobile. Immobilizer had been placed back on her leg which was continued and her picked up the patient at that point in time in the morning and took her to her appointment with Dr. Cortez [facility] at [facility]. DISCHARGE INSTRUCTIONS: The patient was discharged with with plans to go to [facility] for appointment in the afternoon with Dr. Cortez and then possibly returning to [facility] until awaited surgery. DIET: Regular. ACTIVITY: Toe touch weightbearing left lower extremity. Knee immobilizer and walker when ambulatory. Can remove the above knee immobilizer in bed. Ice left lower extremity knee for discomfort as needed. Follow up with Dr. Cortez as scheduled. DISCHARGE MEDICATIONS: Hydrocodone one to two tabs p.o. q. 6 hours p.r.n. Resume home meds as listed. Stop taking doxepin, omega 3, oxycodone.
== END 2018-06-01 10:50 | DRG 560 ==
LOC: ED 17:59 → 3W 23:52